=== PATIENT | female | born 1960 | race Caucasian/White ===

== ENCOUNTER → 2017-07-06 | Outpatient (CLI) | payer MEDICARE ==
--- NOTE | 2017-07-06 15:58 | WOMENS IMAGING REPORT ---
EXAM DESCRIPTION: BILAT SCREENING MAMMO W/CAD COMPLETED DATE/TIME: 07/06/2017 11:26 am REASON FOR STUDY: SCREENING MAMMO Z12.31 ENCNTR SCREEN MAMMOGRAM FOR MALIGNANT NEOPLASM OF VITOR COMPARISON: 09/02/2015 and 05/09/2014. TECHNIQUE: Standard craniocaudal and mediolateral oblique views of each breast recorded using DBVua l acquisition. LIMITATIONS: None. FINDINGS: No masses, calcifications or architectural distortion. No areas of suspicion. Read with the assistance of CAD. .[facility] - R2 Cenova Version 1.3 .[facility] - R2 Cenova Version 1.3 .[facility] - R2 Cenova Version 2.4 .[facility] [place] - R2 Cenova Version 2.4 .[facility] - R2 [employer] Version 9.2 IMPRESSION: NORMAL MAMMOGRAM. BIRADS 1. BREAST DENSITY: b. There are scattered areas of fibroglandular density. BIRAD: 1 NEGATIVE RECOMMENDATION: ROUTINE SCREENING COMMENT: The patient has been notified of the results by letter per SA requirements. Additional no tification policies are in place for contacting patient with suspicious or incomplete findings. Quality ID #[id number]: The [employer] recommends an annual screening mammogram for women aged 40 years or over. This facility utilizes a reminder system to ensure that all patients receive reminder letters, and/or direct phone calls for appointments. This includes reminders for routine scr eening mammograms, diagnostic mammograms, or other Breast Imaging Interventions when appropriate. Th is patient will be placed in the appropriate reminder system. The [employer] (ACR) has developed recommendations for screening MRI of the breast s in certain patient populations, to be used in conjunction with mammography. Breast MRI surveillanc e may be appropriate for women with more than 20% lifetime risk of developing breast cancer as deter mined by genetic testing, significant family history of the disease, or history of mantle radiation f or Hodgkins Disease. ACR Practice Guidelines 2008. TECHNICAL DOCUMENTATION: FINDING NUMBER: (1) ASSESSMENT: (1) JOB ID: [id number] EXPO- All Rights Reserved
== END ==
LOC: WI 09:58
PROVIDERS: ATTEND Family Medicine
DX: Z12.31 Encounter for screening mammogram for malignant neoplasm of breast (principal)
CPT/HCPCS: 77067; G0202

== ENCOUNTER 2018-07-22 16:20 | Emergency (ER) | payer MEDICARE ==
[2018-07-22] MEDS ORDERED: OLANZAPINE 5 MG TAB.RAPDIS PO ONE (17:17)
[2018-07-22 17:51] LABS: ABSOLUTE BASOPHILS # (AUTO) 0.1 10^3/uL (0.0-0.2); ABSOLUTE EOSINOPHILS # (AUTO) 0.1 10^3/uL (0.0-0.6); ABSOLUTE LYMPHOCYTES (AUTO) 2.3 10^3/uL (0.5-4.7); ABSOLUTE MONOCYTES (AUTO) 0.6 10^3/uL (0.1-1.4); ABSOLUTE NEUT (AUTO) 5.3 10^3/uL (1.7-8.2); BASOPHILS % (AUTO) 1.4 % (0-2); EOSINOPHILS % (AUTO) 0.7 % (0-6); HEMATOCRIT 35.1 % (36.0-47.0); HEMOGLOBIN 11.7 g/dL (12.0-15.5); LYMPHOCYTES % (AUTO) 27.4 % (13-45); MEAN CORPUSCULAR HEMOGLOBIN 27.9 pg (27.0-33.4); MEAN CORPUSCULAR HGB CONC 33.5 g/dL (32.0-36.0); MEAN CORPUSCULAR VOLUME 83 fl (80-97); MONOCYTES % (AUTO) 7.1 % (3-13); PLATELET COUNT 259 10^3/uL (150-450); RED BLOOD COUNT 4.21 10^6/uL (3.72-5.28); RED CELL DISTRIBUTION WIDTH 15.1 % (11.5-14.0); SEGMENTED NEUTROPHILS % (AUTO) 63.4 % (42-78); TOTAL CELLS COUNTED % (AUTO) 100 %; WHITE BLOOD COUNT 8.4 10^3/uL (4.0-10.5)
[2018-07-22 17:54] LABS: APPEARANCE,URINE SLIGHTLY-CLOUDY; BILIRUBIN,URINE NEGATIVE (NEGATIVE); COLOR,URINE YELLOW; GLUCOSE, URINE NEGATIVE (NEGATIVE); KETONES,URINE NEGATIVE (NEGATIVE); LEUKOCYTE ESTERASE,URINE TRACE (NEGATIVE); NITRITE,URINE NEGATIVE (NEGATIVE); PROTEIN,URINE 30 mg/dL (NEGATIVE); URINE SPECIFIC GRAVITY 1.042; UROBILINOGEN,URINE NEGATIVE mg/dL (<2.0)
[2018-07-22 18:13] LABS: ALANINE AMINOTRANSFERASE 67 U/L (9-52); ALKALINE PHOSPHATASE 88 U/L (38-126); ANION GAP 12 (5-19); ASPARTATE AMINO TRANSFERASE 92 U/L (14-36); BILIRUBIN,DIRECT 0.3 mg/dL (0.0-0.4); BILIRUBIN,TOTAL 0.3 mg/dL (0.2-1.3); BLOOD UREA NITROGEN 21 mg/dL (7-20); CALCIUM 9.4 mg/dL (8.4-10.2); CARBON DIOXIDE 29 mmol/L (22-30); CHLORIDE 104 mmol/L (98-107); GLUCOSE 95 mg/dL (75-110); POTASSIUM 3.2 mmol/L (3.6-5.0); SODIUM 144.5 mmol/L (137-145); TOTAL PROTEIN 7.1 g/dL (6.3-8.2)
[2018-07-22 18:14] LABS: ACETAMINOPHEN < 10 ug/mL (10-30); ALCOHOL < 10 mg/dL (NONE DETECTED); SALICYLATE < 1.0 mg/dL (2.0-20.0)
[2018-07-22 18:19] LABS: URINE AMPHETAMINES SCREEN NEGATIVE; URINE BARBITURATES SCREEN NEGATIVE; URINE BENZODIAZEPINES SCREEN UNCONFIRMED POSITIVE; URINE COCAINE SCREEN NEGATIVE; URINE MARIJUANA (THC) SCREEN NEGATIVE; URINE METHADONE SCREEN NEGATIVE; URINE PHENCYCLIDINE SCREEN NEGATIVE
[2018-07-22] MEDS ORDERED: POTASSIUM CHLORIDE 10 MEQ CAPSULE.ER PO ONE (19:19)
--- NOTE | 2018-07-22 19:19 | ER Document Report ---
ED General - General Chief Complaint: Anxiety Stated Complaint: PSYCH EVAL Time Seen by Provider: 07/22/18 16:49 TRAVEL OUTSIDE OF THE [place] IN LAST 30 DAYS: No - HPI Patient complains to provider of: Psychiatric evaluation Notes: Patient coming in for psychiatric evaluation. Patient upon my evaluation does look to be acutely manic. Patient is very hyperverbal with some cheondoism preoccupation. Patient upon my initial evaluation tells a random story with multiple names mixed in stating that they were very upsetting her. Eventually able to figure out the patient recently lost a loved one this level was cremated by the family. The patient is very upset that the lump on his cremated patient states that she has been trying to settle multiple memorials to celebrate loved ones life. Patient also states that psychiatric history of bipolar and does admit that this time she does feel manic. Patient denies any homicidal suicidal ideation. Patient does state that she is prescribed Valium once at nighttime once in the morning time also she is prescribed Valium 3 times daily and as needed. Patient states she is giving her medications by Dr. Nath psychiatrist stating "he is the best and I only want to be seen by the best". Patient otherwise continues on and continues to ramble with her hyperverbal presentation is not redirectable during the evaluation. - Related Data Allergies/Adverse Reactions: No Known Allergies Allergy (Verified 02/23/14 15:15) Past Medical History - Social History Smoking Status: Current Every Day Smoker Chew tobacco use (# tins/day): No Frequency of alcohol use: None Drug Abuse: None Family History: Reviewed & Not Pertinent Patient has suicidal ideation: No Patient has homicidal ideation: No - Past Medical History Cardiac Medical History: Endocrine Medical History: Renal/ Medical History: Denies: Hx Peritoneal Dialysis GI Medical History: Reports: Hx Gastroesophageal Reflux Disease Psychiatric Medical History: Reports: Hx Bipolar Disorder, Hx Depression, Hx Obsessive Compulsive Disorder, Hx Schizophrenia Past Surgical History: Reports: Hx Hysterectomy - Immunizations Hx Diphtheria, Pertussis, Tetanus Vaccination: Yes Review of Systems - Review of Systems Constitutional: No symptoms reported EENT: No symptoms reported Cardiovascular: No symptoms reported Respiratory: No symptoms reported Gastrointestinal: No symptoms reported Genitourinary: No symptoms reported Female Genitourinary: No symptoms reported Musculoskeletal: No symptoms reported Skin: No symptoms reported Hematologic/Lymphatic: No symptoms reported Neurological/Psychological: Other - Manic -: Yes All other systems reviewed and negative Physical Exam - Vital signs Vitals: Temp Pulse Resp BP Pulse Ox 98.4 F 102 H 19 155/92 H 100 07/22/18 16:30 07/22/18 16:30 07/22/18 16:30 07/22/18 16:30 07/22/18 16:30 Interpretation: Normal - General General appearance: Appears well, Alert - HEENT Head: Normocephalic, Atraumatic Eyes: Normal Pupils: PERRL - Respiratory Respiratory status: No respiratory distress Chest status: Nontender Breath sounds: Normal Chest palpation: Normal - Cardiovascular Rhythm: Regular Heart sounds: Normal auscultation Murmur: No - Abdominal Inspection: Normal Distension: No distension Bowel sounds: Normal Tenderness: Nontender Organomegaly: No organomegaly - Back Back: Normal, Nontender - Extremities General upper extremity: Normal inspection, Nontender, Normal color, Normal ROM , Normal temperature General lower extremity: Normal inspection, Nontender, Normal color, Normal ROM , Normal temperature, Normal weight bearing. No: Tremaine's sign - Neurological Neuro grossly intact: Yes Cognition: Normal Orientation: AAOx4 [place] Coma Scale Eye Opening: Spontaneous [place] Coma Scale Verbal: Oriented Beth Coma Scale Motor: Obeys Commands [place] Coma Scale Total: 15 Speech: Normal Motor strength normal: LUE, RUE, LLE, RLE Sensory: Normal - Psychological Associated symptoms: Manic, Oriental Orthodox preoccupation, Other - Hyperverbal - Skin Skin Temperature: Warm Skin Moisture: Dry Skin Color: Normal Course - Re-evaluation Re-evalutation: 07/22/18 19:18 Patient does admit to taking multiple tablets of her Valium today. At this time patient does look to be in a manic phase of her bipolar disorder. I do feel at this time the patient will be unable to take care of herself recommend the patient be placed on 24-hour hold a dose of Zyprexa was given to the patient laboratory studies done showed slight hypokalemia which will be replaced patient does not endorse any urinary tract symptoms urine will be sent for culture. Patient will wait for psychiatric evaluation in the morning. - Vital Signs Vital signs: Temp Pulse Resp BP Pulse Ox 98.4 F 102 H 19 155/92 H 100 07/22/18 16:30 07/22/18 16:30 07/22/18 16:30 07/22/18 16:30 07/22/18 16:30 - Laboratory Result Diagrams: 07/22/18 17:23 07/22/18 17:23 Laboratory results interpreted by me: 07/22/18 07/22/18 07/22/18 17:23 17:23 17:23 Hgb 11.7 L Hct 35.1 L RDW 15.1 H Potassium 3.2 L BUN 21 H AST 92 H ALT 67 H Urine Protein 30 H Ur Leukocyte Esterase TRACE H Salicylates < 1.0 L Acetaminophen < 10 L Discharge - Discharge Clinical Impression: Bipolar disorder, manic Condition: Good Disposition: PSYCH HOSP/UNIT Instructions: Anxiety ([facility]) Referrals: MARY SINGLETARY MD [Primary Care Provider] - Follow up as needed
[2018-07-22] MEDS ORDERED: HALOPERIDOL 5 MG TABLET PO ONE (20:11)
[2018-07-22] MEDS ORDERED: DIAZEPAM 5 MG TABLET PO ONE (23:02)
--- NOTE | 2018-07-23 00:18 | EKG REPORT ---
SEVERITY:- BORDERLINE ECG - SINUS TACHYCARDIA PROBABLE LEFT ATRIAL ABNORMALITY : Confirmed by: Patricio Fernandez 23-Jul-2018 00:17:53
[2018-07-23] MEDS ORDERED: ACETAMINOPHEN 325 MG TABLET PO ONE (01:07)
--- NOTE | 2018-07-23 10:08 | ER Document Report ---
Doctor's Note Notes: 07/23/18 10:07 Emergency department psychiatric rounding note 57-year-old female was brought in for psychiatric evaluation --patient was initially very manic. Patient received some medications and she states she is feeling very focused now this morning. There is soft music playing in her room and she stated it is helping her. She denies auditory hallucinations. However she is up pacing around the bed and will not sit on the bed. And still has a component of anthony present.
[2018-07-23] MEDS: BENZTROPINE MESYLATE 1 MG TABLET PO SCH (12:13)
[2018-07-23] MEDS: OLANZAPINE 5 MG TABLET PO SCH ×2 (12:13→18:35)
[2018-07-23] MEDS: DIVALPROEX SODIUM 250 MG TAB.SR.24H PO SCH ×2 (12:13→18:35)
--- NOTE | 2018-07-23 15:28 | PSYCHOLOGICAL NOTE ---
Psych Note - Psych Note Date seen by psych provider: 07/23/18 Time seen by psych provider: 03:00 Psych Note: Reason for consult: manic Patient continues to be in a manic state and unable to engage Clinician at this time. Medication recommendations per [facility]'s contracted psychiatrist Dr. Sherri HARRIS are as follows Discontinue Valium Discontinue Ambien Discontinue Seroquel Zyprexa 5mg twice daily Cogentin 1mg daily Depakote 250mg twice daily Diagnosis 296.40 (F31.9) Bipolar I Disorder, Unspecified Impression/Plan: Patient is recommend to continue IVC. Patient continues to be in a manic state. Medication recommendations have been submitted and patient will be re-evaluated in the morning. Dr. Mojica was consulted on the care and management of this patient; attending physician is in agreement with recommendations and disposition.
[2018-07-24] MEDS ORDERED: MELATONIN 5 MG TABLET PO PRN (01:03)
[2018-07-24] MEDS: DIPHENHYDRAMINE HCL 25 MG CAPSULE PO PRN ×3 (01:13→23:22)
[2018-07-24] MEDS ORDERED: DIAZEPAM 5 MG TABLET PO ONE (03:14)
--- NOTE | 2018-07-24 09:36 | ER Document Report ---
Doctor's Note Notes: 07/24/18 09:35 57-year-old female presented in a manic state, confused, disorganized speech, thinking. As the rounding physician this AM, I assessed the patient's labs, vitals, and records. No concerning findings this morning. Patient denies any acute complaints. Patient is cleared for disposition by psychiatry. 07/24/18 22:37 Medication recommendations per [facility]'s contracted psychiatrist Dr. Sherri HARRIS are as follows Discontinue Valium Discontinue Ambien Discontinue Seroquel Zyprexa 5mg twice daily Cogentin 1mg daily Depakote 250mg twice daily Diagnosis 296.40 (F31.9) Bipolar I Disorder, Unspecified Impression/Plan: Patient is recommended to continue IVC. Patient continues to be in a manic state although improving. Patient does engage in organized and linear conversations at times but then reverts back to a flight of thoughts. Patient will be re-evaluated in the morning. Dr. Mojica was consulted on the care and management of this patient; attending physician is in agreement with recommendations and disposition.
[2018-07-24] MEDS: DIVALPROEX SODIUM 250 MG TAB.SR.24H PO SCH ×2 (10:22→18:17)
[2018-07-24] MEDS: BENZTROPINE MESYLATE 1 MG TABLET PO SCH (10:22)
[2018-07-24] MEDS: OLANZAPINE 5 MG TABLET PO SCH ×2 (10:22→18:17)
--- NOTE | 2018-07-24 14:38 | PSYCHOLOGICAL NOTE ---
Psych Note - Psych Note Psych Note: Reason for consult: manic Consent for permissions: Joyce Cabrera, patient's mother, Clinician conducted check in on patient. Patient states that she feels much better after a night of rest. Patient was able to articulate that she was upset about the family not sharing her niece's ashes (there was a in the family) . However, Clinician spoke to patient's mother, it was actually the patient's sister that . Patient was able to articulate that she did not want to harm herself or anyone else. Patient states that she is currently living with her mother and plans to return home after discharge. Patient disclosed that she was being seen at [facility] but she could not remember when her last appointment was made. Patient did report that she was a patient at [facility] about 1.5 years ago. Patient's mother states that the patient's sister two weeks ago and the patient has been acting "weird" every since then. Mother states that patient constantly curses her out and insists on planning a memorial service even though they have already had one. Mother states that she is not afraid of the patient but just wants her to get some help. Mother states that they have also been working with [facility] for mobile crisis to assist with the patient. This Clinician called [employer] [employer] [employer] worker. They took the patient's name and said that they would call back after they did some research. Patient is alert and oriented to person, place, time and circumstance. Mood is euthymic. Patient demonstrates an organized and linear thought process on some topics but then reverts back to random thoughts. Attention and concentration are fair. Eye contact is well maintained. Conversational speech is normal tone and prosody. Insight, judgment and impulse control are fair. Medication recommendations per [facility] contracted psychiatrist Dr. Sherri HARRIS are as follows Discontinue Valium Discontinue Ambien Discontinue Seroquel Zyprexa 5mg twice daily Cogentin 1mg daily Depakote 250mg twice daily Diagnosis 296.40 (F31.9) Bipolar I Disorder, Unspecified Impression/Plan: Patient is recommended to continue IVC. Patient continues to be in a manic state although improving. Patient does engage in organized and linear conversations at times but then reverts back to a flight of thoughts. Patient will be re-evaluated in the morning. Dr. Mojica was consulted on the care and management of this patient; attending physician is in agreement with recommendations and disposition.
[2018-07-25] MEDS ORDERED: ACETAMINOPHEN 325 MG TABLET PO ONE (02:13)
[2018-07-25] MEDS: BENZTROPINE MESYLATE 1 MG TABLET PO SCH (09:13)
[2018-07-25] MEDS: DIVALPROEX SODIUM 250 MG TAB.SR.24H PO SCH (09:14)
[2018-07-25] MEDS: OLANZAPINE 5 MG TABLET PO SCH (09:15)
[2018-07-25] MEDS ORDERED: POTASSIUM CHLORIDE 10 MEQ CAPSULE.ER PO ONE (11:15)
--- NOTE | 2018-07-25 11:36 | PSYCHOLOGICAL NOTE ---
Psych Note - Psych Note Date seen by psych provider: 07/25/18 Psych Note: Reason for consult: manic Consent for permissions: Joyce Cabrera, patient's mother, Patient was accepted to [facility] Chart review conducted patient continues to disclose bizarre thought processes [facility] staff disclosed to clinician concern he patient was asking to call 911 because she thinks her is missing and then offered for services and a therapist to other patient. Medication recommendations per [facility]'s contracted psychiatrist Dr. Sherri HARRIS are as follows Discontinue Valium Discontinue Ambien Discontinue Seroquel Zyprexa 5mg twice daily Cogentin 1mg daily Depakote 250mg twice daily Diagnosis 296.80 (F31.9) Unspecified Bipolar Disorder per history Impression/Plan: Patient is recommended to continue IVC. Clinician was told by attending [facility] staff the patient is concerned that her is missing and wanted to call 911. 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 Patient has been accepted to [facility]; transportation has been requested. Dr. Mojica was consulted on the care and management of this patient; attending physician is in agreement with recommendations and disposition.
--- NOTE | 2018-07-25 11:42 | ER Document Report ---
Doctor's Note Notes: 07/25/18 11:52 Rounds: Chart reviewed and patient interviewed. Patient being evaluated for bipolar disorder, manic state. Patient says she is doing fine while she is sitting and eating her lunch of fried chicken, etc. Says it is quite good. She has been up walking around the department with no difficulty. Says she is doing well. Vital signs are all normal except for a slight tachycardia which has been as high as 121, but most recently was 108. EKG earlier showed sinus tachycardia at 100. No other findings. All other vital signs normal. Lab studies showed a potassium of 3.2 so the patient was given 40 mEq of potassium p.o. Drug screen was positive for benzos. She acknowledged taking a number of her Valium. Patient appears to be medically stable for transfer or discharge. Demarcus Nova MD
[2018-07-25 11:51] VITALS: BP 142/99
== END 2018-07-25 13:45 ==
LOC: ER 16:20
DX: F31.9 Bipolar disorder, unspecified (principal); E87.6 Hypokalemia; F17.200 Nicotine dependence, unspecified, uncomplicated; Z79.899 Other long term (current) drug therapy; R00.0 Tachycardia, unspecified
CPT/HCPCS: 93005; 99285; 36415; 87086; 80307 ×4; 85025; 80053; 81001; 93010; A9270 ×18; J3490

== ENCOUNTER 2018-08-12 18:57 | Emergency (ER) | payer MEDICARE ==
[2018-08-12 20:17] LABS: ALANINE AMINOTRANSFERASE 26 U/L (9-52); ALBUMIN 4.1 g/dL (3.5-5.0); ALKALINE PHOSPHATASE 99 U/L (38-126); ANION GAP 13 (5-19); ASPARTATE AMINO TRANSFERASE 23 U/L (14-36); BILIRUBIN,DIRECT 0.1 mg/dL (0.0-0.4); BILIRUBIN,TOTAL 0.1 mg/dL (0.2-1.3); BLOOD UREA NITROGEN 20 mg/dL (7-20); CALCIUM 9.7 mg/dL (8.4-10.2); CARBON DIOXIDE 25 mmol/L (22-30); CHLORIDE 107 mmol/L (98-107); GLUCOSE 124 mg/dL (75-110); POTASSIUM 3.7 mmol/L (3.6-5.0); TOTAL PROTEIN 6.9 g/dL (6.3-8.2)
--- NOTE | 2018-08-12 20:26 | ER Document Report ---
ED General - General Chief Complaint: Leg Swelling Stated Complaint: ANKLE SWELLING Time Seen by Provider: 08/12/18 19:22 Mode of Arrival: Ambulatory Information source: Patient Notes: Chief complaint: Swelling of the lower extremity History of complain:( obtained from----patient) 57 years old female with history of psychiatric disorder was discharged from the facility yesterday. During this time they noted swelling of the lower extremity and started on Lasix 10 mg a day. Patient also was having lower extremity pain particularly over the ankles and feet. No difficulty in breathing, no chest pain, no palpitation or diaphoresis. Onset: As above Duration: Last few days Severity: Mild to moderate Quality: Gradual Context: As above Exacerbating factor and relieving factors: REVIEW OF SYSTEMS: CONSTITUTIONAL : Denies fever, chills, or sweats. Denies recent illness. EENT: Denies eye, ear, throat, or mouth pain or symptoms. Denies nasal or sinus congestion or discharge. Denies throat, tongue, or mouth swelling or difficulty swallowing. CARDIOVASCULAR: Denies chest pain. Denies palpitations or racing or irregular heart beat. Denies ankle edema. RESPIRATORY: Denies cough, cold, or chest congestion. Denies shortness of breath, difficulty breathing, or wheezing. GASTROINTESTINAL: Denies distention. Denies nausea, vomiting, or diarrhea. Denies blood in vomitus, stools, or per rectum. Denies black, tarry stools. Denies constipation. GENITOURINARY: Denies difficulty urinating, painful urination, burning, frequency, blood in urine, or discharge. FEMALE GENITOURINARY: Denies vaginal bleeding, heavy or abnormal periods, irregular periods. Denies vaginal discharge or odor. MUSCULOSKELETAL: Denies back or neck pain or stiffness. Denies joint pain or swelling. SKIN: Denies rash, lesions or sores. HEMATOLOGIC : Denies easy bruising or bleeding. LYMPHATIC: Denies swollen, enlarged glands. NEUROLOGICAL: Denies confusion or altered mental status. Denies passing out or loss of consciousness. Denies dizziness or lightheadedness. Denies headache. Denies weakness or paralysis or loss of use of either side. Denies problems with gait or speech. Denies sensory loss, numbness, or tingling. Denies seizures. PSYCHIATRIC: Denies anxiety or stress. Denies depression, suicidal ideation, or homicidal ideation. ALL OTHER SYSTEMS REVIEWED AND NEGATIVE. PHYSICAL EXAMINATION: GENERAL: Well-appearing, well-nourished and in no acute distress. HEAD: Atraumatic, normocephalic. EYES: Pupils equal round and reactive to light, extraocular movements intact, conjunctiva are normal. ENT: Nares patent, oropharynx clear without exudates. Moist mucous membranes. NECK: Normal range of motion, supple without lymphadenopathy LUNGS: Breath sounds clear to auscultation bilaterally and equal. No wheezes rales or rhonchi. HEART: Regular rate and rhythm without murmurs ABDOMEN: Soft, nontender, nondistended abdomen. No guarding, no rebound. No masses appreciated. Examination of genitals-deferred Musculoskeletal: Normal range of motion, no pitting or edema. No cyanosis. Lower leg swelling noted but it is not a pitting edema is a chronic venous stasis. NEUROLOGICAL: Cranial nerves grossly intact. Normal speech, normal gait. Normal sensory, motor exams PSYCH: Normal mood, normal affect. SKIN: Warm, Dry, normal turgor, no rashes or lesions noted. Dictation was performed using [employer] voice recognition software TRAVEL OUTSIDE OF THE [place] IN LAST 30 DAYS: No - HPI Notes: Dictated - Related Data Allergies/Adverse Reactions: No Known Allergies Allergy (Verified 08/12/18 19:03) Past Medical History - Social History Smoking Status: Never Smoker Frequency of alcohol use: Rare Drug Abuse: None Lives with: Family Family History: Reviewed & Not Pertinent Patient has suicidal ideation: No Patient has homicidal ideation: No - Past Medical History Cardiac Medical History: Endocrine Medical History: Renal/ Medical History: Denies: Hx Peritoneal Dialysis GI Medical History: Reports: Hx Gastroesophageal Reflux Disease Psychiatric Medical History: Reports: Hx Bipolar Disorder, Hx Depression, Hx Obsessive Compulsive Disorder, Hx Schizophrenia Past Surgical History: Reports: Hx Hysterectomy - Immunizations Hx Diphtheria, Pertussis, Tetanus Vaccination: Yes Review of Systems - Review of Systems Notes: Dictated Physical Exam - Vital signs Vitals: Temp Pulse Resp BP Pulse Ox 98.6 F 110 H 18 124/72 96 08/12/18 19:09 08/12/18 19:09 08/12/18 19:09 08/12/18 19:09 08/12/18 19:09 - Notes Notes: Dictated Course - Vital Signs Vital signs: Temp Pulse Resp BP Pulse Ox 98.6 F 110 H 18 124/72 96 08/12/18 19:09 08/12/18 19:09 08/12/18 19:09 08/12/18 19:09 08/12/18 19:09 - Laboratory Result Diagrams: 08/12/18 19:35 Laboratory results interpreted by me: 08/12/18 19:35 Glucose 124 H Total Bilirubin 0.1 L Discharge - Discharge Clinical Impression: Non-pitting edema Peripheral neuropathy Qualifiers: Peripheral neuropathy type: polyneuropathy, unspecified Qualified Code(s): G62.9 - Polyneuropathy, unspecified Condition: Fair Disposition: HOME, SELF-CARE Instructions: Neuropathy ([facility]) Prescriptions: Gabapentin [Neurontin 100 mg Capsule] 100 mg PO Q12 #60 capsule Referrals: MARY SINGLETARY MD [Primary Care Provider] - Follow up as needed
[2018-08-12 20:51] VITALS: BP 133/84
== END 2018-08-12 20:59 | disposition home or self-care (01) ==
LOC: ER 18:57
DX: G62.9 Polyneuropathy, unspecified (principal); R60.0 Localized edema; M79.606 Pain in leg, unspecified; Z79.899 Other long term (current) drug therapy
CPT/HCPCS: 36415; 80053; 83880; 99283

== ENCOUNTER 2019-01-12 06:29 | Inpatient (IN) | payer MEDICARE ==
--- NOTE | 2019-01-12 06:39 | ER Document Report ---
ED General - General Stated Complaint: FALL Time Seen by Provider: 01/12/19 06:37 Notes: 58-year-old female on multiple psychiatric medication presents with fall. Is un clear what she was found down of the fall was witnessed, EMS is not here to give a report. Apparently she told her family she might of taken too many psych meds. She has altered mental status with me and is not able to give much of a history. TRAVEL OUTSIDE OF THE [place] IN LAST 30 DAYS: No - Related Data Allergies/Adverse Reactions: No Known Allergies Allergy (Verified 08/12/18 19:03) Past Medical History - General Information source: Patient - Social History Smoking Status: Never Smoker Family History: Reviewed & Not Pertinent - Past Medical History Cardiac Medical History: Endocrine Medical History: Renal/ Medical History: Denies: Hx Peritoneal Dialysis GI Medical History: Reports: Hx Gastroesophageal Reflux Disease Psychiatric Medical History: Reports: Hx Bipolar Disorder, Hx Depression, Hx Obsessive Compulsive Disorder, Hx Schizophrenia Past Surgical History: Reports: Hx Hysterectomy - Immunizations Hx Diphtheria, Pertussis, Tetanus Vaccination: Yes Review of Systems - Review of Systems Notes: REVIEW OF SYSTEMS Third mental status PHYSICAL EXAMINATION General: No acute distress, well-nourished Head: Bruising and laceration to the midline forehead, normocephalic ENT: Mouth normal, oropharynx very dry with dried sputum and saliva around the mouth Eyes: Conjunctiva, 6 mm minimally reactive pupils bilaterally Neck: No JVD, supple, no guarding CVS: Normal rate, regular rhythm, no murmurs Resp: No resp distress, equal and normal breath sounds bilaterally GI: Nondistended, soft, no tenderness to palpation, no rebound or guarding Ext: No deformities, no edema, normal range of motion in upper and lower ext Back: No CVA or midline TTP Skin: No rash, warm Lymphatic: No lymphadeopathy noted Neuro: Awake, staring, does interact with eyes. Answer simple questions. Clonus and intermittent myoclonus. Symmetric. -: Yes ROS unobtainable due to patient's medical condition Physical Exam - Vital signs Vitals: Resp Pulse Ox 13 96 01/12/19 06:34 01/12/19 06:34 Course - Re-evaluation Re-evalutation: 01/12/19 08:05 Patient presents with fall versus versus syncope, looks like she is been down for quite a while has dried sputum, looks very dry possibly septic and definite ly altered. We will do septic work-up but also trauma work-up with head and neck CT scan, suspect also involvement of psychiatric medications versus psychiatric decompensation. Will give fluids initially and check labs. Reassessed at 8 AMno change in mental status. Head and C-spine CT read negat zee, cleared C-spine. First lab back as an elevated lactic. Have ordered fluids and antibiotics concern for sepsis. 01/12/19 08:51 X-rays negative urine is negative. Remains with a white count unexplained. Also on lithium. Added lithium level added vancomycin to cover drug-resistant strep meningitis, is already received Rocephin. Cultures are in the lab. Discussed with Dr. cuco gustafson for admission. Initially was going to perform an LP but he states that it is quite needs to get done in radiology, so this is been ordered as well. I added on acyclovir to cover encephalitis. - Vital Signs Vital signs: Temp Pulse Resp BP Pulse Ox 99.9 F 14 169/93 H 94 01/12/19 07:26 01/12/19 07:01 01/12/19 07:01 01/12/19 07:26 - Laboratory Result Diagrams: 01/12/19 06:50 01/12/19 06:50 Laboratory results interpreted by me: 01/12/19 01/12/19 01/12/19 06:37 06:50 06:50 WBC 26.4 H Seg Neuts % (Manual) 87 H Lymphocytes % (Manual) 8 L Abs Neuts (Manual) 23.0 H BUN 24 H Est GFR (Non-Af Amer) 58 L Glucose 155 H POC Glucose 154 H Lactic Acid Calcium 10.6 H AST 55 H Creatine Kinase Urine Protein 01/12/19 01/12/19 01/12/19 06:50 06:50 06:50 WBC Seg Neuts % (Manual) Lymphocytes % (Manual) Abs Neuts (Manual) BUN Est GFR (Non-Af Amer) Glucose POC Glucose Lactic Acid 3.8 H Calcium AST Creatine Kinase 554 H Urine Protein 30 H - Diagnostic Test Radiology reviewed: Image reviewed, Reports reviewed Critical Care Note - Critical Care Note Total time excluding time spent on procedures (mins): 34 Comments: The above patient is critically ill. Not including procedures, but including direct re-evaluations, speaking with patient and/or consultants, interpreting results, and documenting, I spent the total amount of minute listed listed above on critical care time Discharge - Discharge Clinical Impression: Elevated lactic acid level Altered mental status Qualifiers: Altered mental status type: unspecified Qualified Code(s): R41.82 - Altered mental status, unspecified Condition: Critical Disposition: ADMITTED INPATIENT Admitting Provider: Maye (Hospitalist) Unit Admitted: [facility]
[2019-01-12 07:24] LABS: INTERNATIONAL RATION (INR) 0.93; PROTHROMBIN TIME 12.9 SEC (11.4-15.4)
[2019-01-12 07:26] LABS: HEMATOCRIT 36.2 % (36.0-47.0); HEMOGLOBIN 12.1 g/dL (12.0-15.5); MEAN CORPUSCULAR HEMOGLOBIN 27.2 pg (27.0-33.4); MEAN CORPUSCULAR HGB CONC 33.4 g/dL (32.0-36.0); MEAN CORPUSCULAR VOLUME 81 fl (80-97); PLATELET COUNT 386 10^3/uL (150-450); RED BLOOD COUNT 4.45 10^6/uL (3.72-5.28); RED CELL DISTRIBUTION WIDTH 13.9 % (11.5-14.0); WHITE BLOOD COUNT 26.4 10^3/uL (4.0-10.5)
--- NOTE | 2019-01-12 07:34 | RADIOLOGY REPORT (SQ) ---
CLINICAL HISTORY: trauma COMPARISON: None. TECHNIQUE: CT HEAD WITHOUT IV CONTRAST on 01/12/2019 6:37 AM CDT This exam was performed according to our departmental dose-optimization program, which includes automated exposure control, adjustment of the mA and/or kV according to patient size and/or use of iterative reconstruction technique. FINDINGS: There is a small midline frontal scalp contusion. Arreola-white differentiation is preserved. There is no hydrocephalus. There is no significant volume loss for age. There are mild patchy hypodensities within the periventricular and subcortical white matter, consistent with microangiopathic ischemic changes. The calvarium is intact. Orbits and globes are unremarkable. There is a right maxillary sinus mucous retention cyst. Mastoid air cells are clear. IMPRESSION: No acute intracranial findings.
--- NOTE | 2019-01-12 07:35 | RADIOLOGY REPORT (SQ) ---
EXAM DESCRIPTION: CT CERVICAL SPINE WITHOUT IV CONTRAST COMPLETED DATE/TME: 01/12/2019 06:37 CLINICAL HISTORY: 58 years, Female, trauma COMPARISON: None. TECHNIQUE: Axial CT images of the cervical spine were obtained without contrast. Sagittal and coronal reformats were performed. DLP 388 Images stored on PACS. All CT scanners at this facility use dose modulation, iterative reconstruction, and/or weight based dosing when appropriate to reduce radiation dose to as low as reasonably achievable (ALARA). [facility]: Dose Right [facility]: CareDose [facility]: Dose Right [facility]: Teradose 4D [facility]: S4 [employer] LIMITATIONS: None. FINDINGS: The alignment of the cervical spine is satisfactory. There is no acute fracture or subluxation. The vertebral heights are maintained. The craniocervical junction is intact. The odontoid process is intact. The prevertebral soft tissues are normal. There is mild multilevel spondylosis, most notably at C4-C5 with mild disc space narrowing with marginal osteophytes. There is severe right-sided neural foraminal narrowing at C4-C5 secondary to uncovertebral hypertrophy. The visualized lung apices are clear. IMPRESSION: No acute fracture or subluxation of the cervical spine. TECHNICAL DOCUMENTATION: Quality ID # 436: Final reports with documentation of one or more dose reduction techniques (e.g., Automated exposure control, adjustment of the mA and/or kV according to patient size, use of iterative reconstruction technique) copyright 2011 [employer]- All Rights Reserved
[2019-01-12] MEDS ORDERED: CEFTRIAXONE 1 GM/D5W RTU 1 GM/50 ML RTUPB IV ONE ×2 (07:39→07:50)
[2019-01-12 07:40] LABS: ALANINE AMINOTRANSFERASE 49 U/L (9-52); ALBUMIN 4.6 g/dL (3.5-5.0); ALKALINE PHOSPHATASE 92 U/L (38-126); ANION GAP 13 (5-19); ASPARTATE AMINO TRANSFERASE 55 U/L (14-36); BILIRUBIN,DIRECT 0.4 mg/dL (0.0-0.4); BILIRUBIN,TOTAL 0.4 mg/dL (0.2-1.3); BLOOD UREA NITROGEN 24 mg/dL (7-20); CALCIUM 10.6 mg/dL (8.4-10.2); CARBON DIOXIDE 24 mmol/L (22-30); CHLORIDE 107 mmol/L (98-107); GLUCOSE 155 mg/dL (75-110); POTASSIUM 3.6 mmol/L (3.6-5.0); SODIUM 143.6 mmol/L (137-145); TOTAL PROTEIN 7.8 g/dL (6.3-8.2)
[2019-01-12] MEDS ORDERED: NORMAL SALINE 1000 ML 1,000 ML IV ONE (07:40)
[2019-01-12] MEDS ORDERED: CEFTRIAXONE INJ 1000 MG VIAL ONE (07:51)
[2019-01-12 07:53] LABS: VENOUS BLOOD BASE EXCESS 0.8 mmol/L; VENOUS BLOOD HCO3 25.9 mmol/L (20-32); VENOUS BLOOD PCO2 42.8 mmHg (35-63); VENOUS BLOOD PH 7.4 (7.30-7.42)
[2019-01-12 08:01] LABS: ABSOLUTE LYMPHOCYTES# (MANUAL) 2.1 10^3/uL (0.5-4.7); ABSOLUTE MONOCYTES # (MANUAL) 1.3 10^3/uL (0.1-1.4); BASOPHILS % (MANUAL) 0 % (0-2); EOSINOPHILS % (MANUAL) 0 % (0-6); LYMPHOCYTES % (MANUAL) 8 % (13-45); MONOCYTES % (MANUAL) 5 % (3-13); PLATELET CLUMPS PRESENT; PLATELET COMMENT ADEQUATE; RBC MORPHOLOGY COMMENT NORMO-CYTIC/CHROMIC; SEGMENTED NEUTROPHILS % (MAN) 87 % (42-78); TOTAL CELLS COUNTED 100; TOXIC GRANULATION SLIGHT; TOXIC VACUOLATION PRESENT
[2019-01-12 08:07] LABS: APPEARANCE,URINE SLIGHTLY-CLOUDY; BILIRUBIN,URINE NEGATIVE (NEGATIVE); COLOR,URINE YELLOW; GLUCOSE, URINE NEGATIVE (NEGATIVE); KETONES,URINE NEGATIVE (NEGATIVE); LEUKOCYTE ESTERASE,URINE NEGATIVE (NEGATIVE); NITRITE,URINE NEGATIVE (NEGATIVE); PROTEIN,URINE 30 mg/dL (NEGATIVE); URINE SPECIFIC GRAVITY 1.018; UROBILINOGEN,URINE NEGATIVE mg/dL (<2.0)
[2019-01-12] MEDS ORDERED: VANCOMYCIN HCL INJ 1000 MG VIAL IV ONE (08:30)
[2019-01-12] MEDS ORDERED: LIDOCAINE 1%/EPINEPHRINE INJ 20 ML VIAL INJ ONE (08:30)
[2019-01-12] MEDS ORDERED: LIDOCAINE 1% INJ-PF (10 MG/ML) 30 ML SDV INJ ONE (08:30)
--- NOTE | 2019-01-12 08:50 | RADIOLOGY REPORT (SQ) ---
EXAM DESCRIPTION: CHEST SINGLE VIEW COMPLETED DATE/TIME: 01/12/2019 8:40 am REASON FOR STUDY: elev wbc COMPARISON: TWO-VIEW CHEST 01/03/2016 EXAM PARAMETERS: NUMBER OF VIEWS: One view. TECHNIQUE: Single frontal radiographic view of the chest acquired. RADIATION DOSE: NA LIMITATIONS: None. FINDINGS: LUNGS AND PLEURA: No opacities, masses or pneumothorax. No pleural effusion. MEDIASTINUM AND HILAR STRUCTURES: No masses. Contour normal. HEART AND VASCULAR STRUCTURES: Heart normal in size. Normal vasculature. BONES: No acute findings. HARDWARE: None in the chest. OTHER: No other significant finding. IMPRESSION: NO ACUTE RADIOGRAPHIC FINDING IN THE CHEST. TECHNICAL DOCUMENTATION: JOB ID: [id number] [employer]- All Rights Reserved Reading location - IP/workstation name: [email or web address]
[2019-01-12] MEDS ORDERED: ACYCLOVIR SODIUM INJ/PF 500 MG/10 ML SDV IV ONE (08:51)
[2019-01-12] MEDS ORDERED: MAGNESIUM HYDROXIDE SUSP 30 ML UDCUP PO PRN (09:02)
[2019-01-12] MEDS ORDERED: PROMETHAZINE HCL INJ 25 MG/1 ML VIAL IV PRN (09:02)
[2019-01-12] MEDS ORDERED: LORAZEPAM INJ 2 MG/1 ML VIAL IV ONE ×2 (09:12→09:49)
[2019-01-12] MEDS ORDERED: VANCOMYCIN HCL 0 MG in DEXTROSE 5%-WATER 250 ML IV NR (09:15)
--- NOTE | 2019-01-12 09:25 | PDOC H&P ---
History of Present Illness Admission Date/PCP: 01/12/19 08:48 MARY SINGLETARY MD History of Present Illness: KYLER INFANTE is a 58 year old female patient with psychiatric disorder and taking multiple antipsychotic medications including Risperdal, perphenazine and lithium brought by EMS for altered mental status and fall. Patient is oriented to self only. Due to her cognitive impairment, patient is not able to give any meaningful history. Brief history is obtained from ER attending note. Per ER attending note, patient has been on multiple psychiatric medication presented with fall. Is unclear when she was found down of the fall was witnessed, EMS is not here to give a report. Apparently she told her family she might have taken too many psych medications. When I see the patient patient is awake alert. She is disheveled and unkempt. She has several lacerations and cuts on her forehead and she has also erythema on her neck. Her CT scan is negative for acute for acute intracranial process. Her blood work shows WBC of 26,000 lactic acid of 3.8. Her lithium level is pending. Patient has low-grade fever, altered mental status and leukocytosis so I think it is appropriate to do lumbar puncture to rule out meningitis. In the meantime patient has been st arted on ceftriaxone and vancomycin. Past Medical History Cardiac Medical History: Endocrine Medical History: GI Medical History: Reports: Gastroesophageal Reflux Disease Psychiatric Medical History: Reports: Bipolar Disorder, Depression Past Surgical History Past Surgical History: Reports: Hysterectomy Social History Smoking Status: Never Smoker - Advance Directive Resuscitation Status: Full Code Family History Family History: Reviewed & Not Pertinent Parental Family History Reviewed: Yes Children Family History Reviewed: Yes Sibling(s) Family History Reviewed.: Yes Medication/Allergy Home Medications: Baclofen [Baclofen 20 mg Tablet] 20 mg PO DAILY 01/12/19 Benztropine Mesylate [Cogentin 1 mg Tablet] 1 mg PO BID 01/12/19 Biotin 5,000 mcg PO DAILY 01/12/19 Calcium Carbonate/Vitamin D3 [Calcium 600-Vit D3 500 Softgel] 2 cap PO DAILY 01/12/19 Cholecalciferol (Vitamin D3) [Vitamin D3 2000 unit Tablet] 2,000 unit PO DAILY 01/12/19 Ferrous Sulfate [Feosol 325 mg Tablet] 325 mg PO DAILY 01/12/19 Hydroxyzine Pamoate [Vistaril 50 mg Capsule] 50 mg PO Q8 01/12/19 [place] Carbonate [[place] Carbonate ER] 300 mg PO QAM 01/12/19 [place] Carbonate [[place] Carbonate ER] 600 mg PO QPM 01/12/19 Loratadine [Claritin 10 mg Tablet] 10 mg PO DAILYP PRN 01/12/19 Melatonin 10 mg PO QHS 01/12/19 Meloxicam [Mobic] 15 mg PO DAILY 01/12/19 Mv-Min/Iron/Folic/Calcium/Vitk [Women's Multivitamin Tablet] 1 tab PO DAILY 01/12/19 Omeprazole 40 mg PO [id number] 01/12/19 Perphenazine 2 mg PO QHS 01/12/19 Risperidone [Risperdal] 1 mg PO BID 01/12/19 Allergies/Adverse Reactions: No Known Allergies Allergy (Verified 08/12/18 19:03) Review of Systems ROS unobtainable: Due to mental status Physical Exam Vital Signs: Temp Pulse Resp BP Pulse Ox 99.9 F 14 169/93 H 94 01/12/19 07:26 01/12/19 07:01 01/12/19 07:01 01/12/19 07:26 General appearance: PRESENT: no acute distress, well-developed Head exam: PRESENT: other - Laceration and bruises on her forehead Eye exam: PRESENT: conjunctival injection Mouth exam: PRESENT: dry mucosa Neck exam: ABSENT: carotid bruit, JVD, lymphadenopathy, thyromegaly Respiratory exam: PRESENT: clear to auscultation manolo. ABSENT: rales, rhonchi, wheezes Cardiovascular exam: PRESENT: RRR. ABSENT: diastolic murmur, rubs, systolic murmur GI/Abdominal exam: PRESENT: normal bowel sounds, soft. ABSENT: distended, guarding, mass, organolmegaly, rebound, tenderness Neurological exam: PRESENT: alert, altered, awake Results Laboratory Results: 01/12/19 06:50 01/12/19 06:50 01/12/19 01/12/19 01/12/19 06:50 06:50 06:50 WBC 26.4 H RBC 4.45 Hgb 12.1 Hct 36.2 MCV 81 MCH 27.2 MCHC 33.4 RDW 13.9 Plt Count 386 Seg Neutrophils % Not Reportable Lymphocytes % Not Reportable Monocytes % Not Reportable Eosinophils % Not Reportable Basophils % Not Reportable Absolute Neutrophils Not Reportable Absolute Lymphocytes Not Reportable Absolute Monocytes Not Reportable Absolute Eosinophils Not Reportable Absolute Basophils Not Reportable VBG pH VBG pCO2 VBG HCO3 VBG Base Excess Sodium 143.6 Potassium 3.6 Chloride 107 Carbon Dioxide 24 Anion Gap 13 BUN 24 H Creatinine 0.99 Est GFR ( Amer) > 60 Est GFR (Non-Af Amer) 58 L Glucose 155 H Lactic Acid 3.8 H Calcium 10.6 H Total Bilirubin 0.4 AST 55 H ALT 49 Alkaline Phosphatase 92 Total Protein 7.8 Albumin 4.6 Urine Color Urine Appearance Urine pH Ur Specific [place] Urine Protein Urine Glucose (UA) Urine Ketones Urine Blood Urine Nitrite Ur Leukocyte Esterase Urine WBC (Auto) Urine RBC (Auto) 01/12/19 01/12/19 06:50 07:32 WBC RBC Hgb Hct MCV MCH MCHC RDW Plt Count Seg Neutrophils % Lymphocytes % Monocytes % Eosinophils % Basophils % Absolute Neutrophils Absolute Lymphocytes Absolute Monocytes Absolute Eosinophils Absolute Basophils VBG pH 7.40 VBG pCO2 42.8 VBG HCO3 25.9 VBG Base Excess 0.8 Sodium Potassium Chloride Carbon Dioxide Anion Gap BUN Creatinine Est GFR ( Amer) Est GFR (Non-Af Amer) Glucose Lactic Acid Calcium Total Bilirubin AST ALT Alkaline Phosphatase Total Protein Albumin Urine Color YELLOW Urine Appearance SLIGHTLY-CLOUDY Urine pH 6.0 Ur Specific [place] 1.018 Urine Protein 30 H Urine Glucose (UA) NEGATIVE Urine Ketones NEGATIVE Urine Blood NEGATIVE Urine Nitrite NEGATIVE Ur Leukocyte Esterase NEGATIVE Urine WBC (Auto) 2 Urine RBC (Auto) 1 01/12/19 06:50 Creatine Kinase 554 H Impressions: Cervical Spine CT 01/12/19 06:37 IMPRESSION: No acute fracture or subluxation of the cervical spine. TECHNICAL DOCUMENTATION: Quality ID # 436: Final reports with documentation of one or more dose reduction techniques (e.g., Automated exposure control, adjustment of the mA and/or kV according to patient size, use of iterative reconstruction technique) copyright 2011 [employer]- All Rights Reserved Head CT 01/12/19 06:37 IMPRESSION: No acute intracranial findings. Chest X-Ray 01/12/19 08:29 IMPRESSION: NO ACUTE RADIOGRAPHIC FINDING IN THE CHEST. Assessment and Plan - Diagnosis (1) Acute encephalopathy Is this a current diagnosis for this admission?: Yes Plan: Etiology is unclear. Patient has been on multiple antipsychotic medications. She has leukocytosis and fever. LP is pending. Patient has been started empirically on ceftriaxone and vancomycin. (2) Leukocytosis Is this a current diagnosis for this admission?: Yes Plan: Patient has marked leukocytosis of 26,000. We will repeat her CBC in a.m. (3) Depression and bipolar disorder Is this a current diagnosis for this admission?: Yes Plan: I will hold her lithium until her lithium level comes back. We will consult psych to evaluate the patient. - Inpatient Certification Medical Necessity: Need Close Monitoring Due to Risk of Patient Decompensation, Need For IV Fluids
[2019-01-12] MEDS ORDERED: RINGERS SOLUTION,LACTATED 1,000 ML IV ONE (09:46)
[2019-01-12] MEDS ORDERED: LORAZEPAM INJ 2 MG/1 ML VIAL ONE (09:50)
[2019-01-12] MEDS ORDERED: CEFTRIAXONE 2 GM/D5W RTU 2 GM/50 ML RTUPB IV SCH (10:00)
[2019-01-12] MEDS: ENOXAPARIN SODIUM INJ 40 MG/0.4 ML DISP.SYRIN SUBCUT SCH (11:51)
[2019-01-12] MEDS: FAMOTIDINE 20 MG TABLET PO SCH ×2 (11:51→21:40)
[2019-01-12] MEDS: DOCUSATE SODIUM 100 MG/10 ML UDC PO SCH ×2 (11:51→17:47)
--- NOTE | 2019-01-12 12:39 | RADIOLOGY REPORT (SQ) ---
EXAM DESCRIPTION: LUMBAR PUNCTURE; FLUORO/NEEDLE PLACEMENT/SPINE COMPLETED DATE/TIME: 01/12/2019 11:39 am REASON FOR STUDY: r/o meningitis; R/O MENINGTITIS COMPARISON: CT brain 01/12/2019 FLUOROSCOPY TIME: 30 seconds 1 digital fluoroscopic images saved to PACS. TECHNIQUE: Fluoroscopic guided lumbar puncture. LIMITATIONS: None. PROCEDURE: After written consent and assessment were obtained, the patient was brought into the fluo roscopy room and placed prone on the table. The patient's lower back was prepped in a sterile fashio n and an entry site was selected under live fluoroscopic guidance. The entry site was anesthetized wi th 1% lidocaine. A 22 gauge needle was advanced through the skin and into the thecal sac at theleft p aracentral L2-3 level. After approximately 2 ml was drained, the needle was removed and a sterile ban dage was placed of the site. Specimens were sent to the lab for testing. A fluoroscopic spot image was saved to PACS confirming level access. FINDINGS: Clear CSF 2 mL of clear CSF was sent to the lab for testing. Patient was agitated and wou ld not tolerate further collection of CSF IMPRESSION: Lumbar puncture under fluoroscopy. No immediate complication. COMMENT: Patient medication list reviewed: Yes- Quality ID# 130:Eligible professional attests to doc umenting in the medical record they obtained, updated, or reviewed the patient's current medications. . Quality ID 145: Final reports for procedures using fluoroscopy that document radiation exposure jose alejandro andreia, or exposure time and number of fluorographic images (if radiation exposure indices are not avail able) TECHNICAL DOCUMENTATION: JOB ID: [id number] [employer]- All Rights Reserved Reading location - IP/workstation name: [email or web address]
[2019-01-12 12:45] LABS: APPEARANCE ALL TUBES CLEAR; COLOR ALL TUBES COLORLESS; CSF TOTAL VOLUME 1.6 CC; CSF TUBE NUMBER 1; VOLUME TUBE 1 0.8 CC; VOLUME TUBE 2 0.8 CC
[2019-01-12 12:47] LABS: RED BLOOD CELL,CSF 231 /uL (0-10)
[2019-01-12 12:48] LABS: WHITE BLOOD CELL,CSF 4 /uL (0-5)
[2019-01-12 13:24] LABS: GLUCOSE,CSF 96 mg/dL (40-70); PROTEIN,CSF 32 mg/dL (12-60)
[2019-01-12] MEDS: NORMAL SALINE 1000 ML 1,000 ML IV PRN ×2 (15:48→20:47)
--- NOTE | 2019-01-12 19:45 | EKG REPORT ---
SEVERITY:- BORDERLINE ECG - SINUS RHYTHM PROBABLE LEFT ATRIAL ABNORMALITY BORDERLINE PROLONGED QT INTERVAL : Confirmed by: Lisa Mon MD 12-Jan-2019 19:44:25
[2019-01-12] MEDS: VANCOMYCIN HCL 750 MG in DEXTROSE 5%-WATER 250 ML IV SCH (21:39)
[2019-01-12] MEDS: CEFTRIAXONE 2 GM/D5W RTU 2 GM/50 ML RTUPB IV SCH (21:40)
[2019-01-13] MEDS: NORMAL SALINE 1000 ML 1,000 ML IV PRN ×4 (03:37→21:05)
[2019-01-13 04:37] LABS: ABSOLUTE BASOPHILS # (AUTO) 0.1 10^3/uL (0.0-0.2); ABSOLUTE MONOCYTES (AUTO) 1.2 10^3/uL (0.1-1.4); ABSOLUTE NEUT (AUTO) 12.8 10^3/uL (1.7-8.2); BASOPHILS % (AUTO) 0.6 % (0-2); EOSINOPHILS % (AUTO) 0.2 % (0-6); HEMATOCRIT 30.9 % (36.0-47.0); HEMOGLOBIN 10.2 g/dL (12.0-15.5); LYMPHOCYTES % (AUTO) 12.2 % (13-45); MEAN CORPUSCULAR HEMOGLOBIN 26.7 pg (27.0-33.4); MEAN CORPUSCULAR VOLUME 81 fl (80-97); MONOCYTES % (AUTO) 7.4 % (3-13); PLATELET COUNT 228 10^3/uL (150-450); RED BLOOD COUNT 3.81 10^6/uL (3.72-5.28); RED CELL DISTRIBUTION WIDTH 13.7 % (11.5-14.0); SEGMENTED NEUTROPHILS % (AUTO) 79.6 % (42-78); TOTAL CELLS COUNTED % (AUTO) 100 %
[2019-01-13 05:13] LABS: ALANINE AMINOTRANSFERASE 44 U/L (9-52); ALBUMIN 3.4 g/dL (3.5-5.0); ALKALINE PHOSPHATASE 72 U/L (38-126); ANION GAP 11 (5-19); ASPARTATE AMINO TRANSFERASE 54 U/L (14-36); BILIRUBIN,DIRECT 0.3 mg/dL (0.0-0.4); BILIRUBIN,TOTAL 0.3 mg/dL (0.2-1.3); BLOOD UREA NITROGEN 11 mg/dL (7-20); CARBON DIOXIDE 22 mmol/L (22-30); CHLORIDE 111 mmol/L (98-107); GLUCOSE 132 mg/dL (75-110); POTASSIUM 3.1 mmol/L (3.6-5.0); SODIUM 144.4 mmol/L (137-145); TOTAL PROTEIN 5.9 g/dL (6.3-8.2)
[2019-01-13] MEDS ORDERED: POTASSIUM CHLORIDE 10 MEQ CAPSULE.ER PO ONE (08:20)
[2019-01-13] MEDS: ENOXAPARIN SODIUM INJ 40 MG/0.4 ML DISP.SYRIN SUBCUT SCH (10:10)
[2019-01-13] MEDS: FAMOTIDINE 20 MG TABLET PO SCH ×2 (10:10→21:19)
[2019-01-13] MEDS: CEFTRIAXONE 2 GM/D5W RTU 2 GM/50 ML RTUPB IV SCH ×2 (10:11→21:19)
[2019-01-13] MEDS: DOCUSATE SODIUM 100 MG/10 ML UDC PO SCH ×2 (10:16→17:48)
[2019-01-13] MEDS: VANCOMYCIN HCL 750 MG in DEXTROSE 5%-WATER 250 ML IV SCH ×2 (13:27→21:19)
--- NOTE | 2019-01-13 14:44 | PDOC PROGRESS REPORT ---
Subjective Progress Note for:: 01/13/19 Subjective:: This is a 58 year old female patient with PMh of bipolar disorder on multiple antipsychotic medications including Risperdal, perphenazine and lithium brought by EMS for altered mental status and fall. She was oriented to self only. Due to her cognitive impairment, patient is not able to give any meaningful history. Her CT scan was negative for acute intracranial process. Her blood work shows WBC of 26,000 lactic acid of 3.8. LP was done on admission and she was stared on Rocephin, vancomycin and acyclovir. She reportedly took a lot of her psych meds at home. No acute event overnight. She is oriented to person and knows she is in a hospital. Denies other acute complaints. Reason For Visit: ACUTE ENCEPHALOPATHY, LEUKOCYTOSIS, STATUS POST Physical Exam Vital Signs: Temp Pulse Resp BP Pulse Ox 99.1 F 80 16 148/86 H 95 01/13/19 11:00 01/13/19 11:00 01/13/19 11:00 01/13/19 11:00 01/13/19 11:00 Intake & Output 01/12/19 01/13/19 01/14/19 06:59 06:59 06:59 Intake Total 4180 1050 Balance 4180 1050 Weight 170 lb 6.677 oz General appearance: PRESENT: no acute distress, well-developed, well-nourished Head exam: PRESENT: atraumatic, normocephalic Eye exam: PRESENT: conjunctiva pink, EOMI, PERRLA. ABSENT: scleral icterus Ear exam: PRESENT: normal external ear exam Mouth exam: PRESENT: moist, tongue midline Neck exam: ABSENT: carotid bruit, JVD, lymphadenopathy, thyromegaly Respiratory exam: PRESENT: clear to auscultation manolo. ABSENT: rales, rhonchi, wheezes Cardiovascular exam: PRESENT: RRR. ABSENT: diastolic murmur, rubs, systolic murmur Pulses: PRESENT: normal dorsalis pedis pul GI/Abdominal exam: PRESENT: normal bowel sounds, soft. ABSENT: distended, guarding, mass, organolmegaly, rebound, tenderness Rectal exam: PRESENT: deferred Neurological exam: PRESENT: altered, awake, oriented to person, CN II-XII grossly intact. ABSENT: motor sensory deficit Results Laboratory Results: 01/13/19 04:20 01/13/19 04:20 01/13/19 01/13/19 01/13/19 04:20 04:20 10:23 WBC 16.0 H RBC 3.81 Hgb 10.2 L Hct 30.9 L MCV 81 MCH 26.7 L MCHC 33.0 RDW 13.7 Plt Count 228 Seg Neutrophils % 79.6 H Lymphocytes % 12.2 L Monocytes % 7.4 Eosinophils % 0.2 Basophils % 0.6 Absolute Neutrophils 12.8 H Absolute Lymphocytes 2.0 Absolute Monocytes 1.2 Absolute Eosinophils 0.0 Absolute Basophils 0.1 Sodium 144.4 Potassium 3.1 L Chloride 111 H Carbon Dioxide 22 Anion Gap 11 BUN 11 Creatinine 0.84 Est GFR ( Amer) > 60 Est GFR (Non-Af Amer) > 60 Glucose 132 H Lactic Acid 0.7 Calcium 9.0 Total Bilirubin 0.3 AST 54 H ALT 44 Alkaline Phosphatase 72 Total Protein 5.9 L Albumin 3.4 L 01/12/19 06:50 Creatine Kinase 554 H Impressions: Guidance Fluoroscopy 01/12/19 00:00 IMPRESSION: Lumbar puncture under fluoroscopy. No immediate complication. Cervical Spine CT 01/12/19 06:37 IMPRESSION: No acute fracture or subluxation of the cervical spine. TECHNICAL DOCUMENTATION: Quality ID # 436: Final reports with documentation of one or more dose reduction techniques (e.g., Automated exposure control, adjustment of the mA and/or kV according to patient size, use of iterative reconstruction technique) copyright 2011 [employer]- All Rights Reserved Head CT 01/12/19 06:37 IMPRESSION: No acute intracranial findings. Chest X-Ray 01/12/19 08:29 IMPRESSION: NO ACUTE RADIOGRAPHIC FINDING IN THE CHEST. Lumbar Puncture 01/12/19 08:46 IMPRESSION: Lumbar puncture under fluoroscopy. No immediate complication. Assessment and Plan - Diagnosis (1) Acute encephalopathy Is this a current diagnosis for this admission?: Yes Plan: She appears more alert and responsive today. Likely from overdose of her antipsychotropics. She was empirically started on regimen for meningitis. but initial CSF fluid analysis is unremarkable. Await CSF culture result. Will discontinue antimicrobials pending result. Psych consulted. (2) Depression and bipolar disorder Is this a current diagnosis for this admission?: Yes Plan: Await further psych recommendations. (3) Elevated lactic acid level Is this a current diagnosis for this admission?: Yes Plan: Resolved with IV fluids. (4) Hypokalemia Is this a current diagnosis for this admission?: Yes - Time Time Spent with patient: 15-24 minutes
[2019-01-13] MEDS: RISPERIDONE 1 MG TABLET PO SCH (17:55)
[2019-01-14] MEDS: NORMAL SALINE 1000 ML 1,000 ML IV PRN ×3 (04:28→23:45)
[2019-01-14 06:35] LABS: ABSOLUTE BASOPHILS # (AUTO) 0.1 10^3/uL (0.0-0.2); ABSOLUTE EOSINOPHILS # (AUTO) 0.2 10^3/uL (0.0-0.6); ABSOLUTE LYMPHOCYTES (AUTO) 1.9 10^3/uL (0.5-4.7); ABSOLUTE MONOCYTES (AUTO) 0.6 10^3/uL (0.1-1.4); BASOPHILS % (AUTO) 1.3 % (0-2); EOSINOPHILS % (AUTO) 2.3 % (0-6); HEMATOCRIT 31.4 % (36.0-47.0); HEMOGLOBIN 10.6 g/dL (12.0-15.5); LYMPHOCYTES % (AUTO) 19.1 % (13-45); MEAN CORPUSCULAR HEMOGLOBIN 27.5 pg (27.0-33.4); MEAN CORPUSCULAR HGB CONC 33.7 g/dL (32.0-36.0); MEAN CORPUSCULAR VOLUME 82 fl (80-97); MONOCYTES % (AUTO) 6.1 % (3-13); PLATELET COUNT 240 10^3/uL (150-450); RED BLOOD COUNT 3.85 10^6/uL (3.72-5.28); RED CELL DISTRIBUTION WIDTH 13.6 % (11.5-14.0); SEGMENTED NEUTROPHILS % (AUTO) 71.2 % (42-78); TOTAL CELLS COUNTED % (AUTO) 100 %; WHITE BLOOD COUNT 9.8 10^3/uL (4.0-10.5)
[2019-01-14 06:57] LABS: ANION GAP 8 (5-19); BLOOD UREA NITROGEN 5 mg/dL (7-20); CALCIUM 8.6 mg/dL (8.4-10.2); CARBON DIOXIDE 25 mmol/L (22-30); CHLORIDE 109 mmol/L (98-107); CREATINE KINASE 1443 U/L (30-135); GLUCOSE 107 mg/dL (75-110); POTASSIUM 3.3 mmol/L (3.6-5.0); SODIUM 141.6 mmol/L (137-145)
[2019-01-14] MEDS ORDERED: POTASSIUM CHLORIDE 10 MEQ CAPSULE.ER PO ONE (10:15)
[2019-01-14] MEDS: ENOXAPARIN SODIUM INJ 40 MG/0.4 ML DISP.SYRIN SUBCUT SCH (10:44)
[2019-01-14] MEDS: CEFTRIAXONE 2 GM/D5W RTU 2 GM/50 ML RTUPB IV SCH ×2 (10:44→21:08)
[2019-01-14] MEDS: FAMOTIDINE 20 MG TABLET PO SCH ×2 (10:44→21:08)
[2019-01-14] MEDS: RISPERIDONE 1 MG TABLET PO SCH ×2 (10:44→18:12)
[2019-01-14 11:06] LABS: VANCOMYCIN,TROUGH 8.8 ug/mL (5.0-20.0)
[2019-01-14] MEDS: DOCUSATE SODIUM 100 MG/10 ML UDC PO SCH ×2 (12:20→18:10)
[2019-01-14] MEDS: VANCOMYCIN HCL 750 MG in DEXTROSE 5%-WATER 250 ML IV SCH (12:22)
--- NOTE | 2019-01-14 12:50 | PDOC PROGRESS REPORT ---
Subjective Progress Note for:: 01/14/19 Subjective:: This is a 58 year old female patient with PMh of bipolar disorder on multiple antipsychotic medications including Risperdal, perphenazine and lithium brought by EMS for altered mental status and fall. She was oriented to self only. Due to her cognitive impairment, patient is not able to give any meaningful history. Her CT scan was negative for acute intracranial process. Her blood work shows WBC of 26,000 lactic acid of 3.8. LP was done on admission and she was stared on Rocephin, vancomycin and acyclovir. She reportedly took a lot of her psych meds at home. 01/13: She is oriented to person and knows she is in a hospital. Denies other acute complaints. 01/14: No acute event overnight. She is more oriented and conversant today. She is oriented to person, knows she is in a hospital and month and year. No fever or chills. Psych has just evaluated her. Reason For Visit: ACUTE ENCEPHALOPATHY, LEUKOCYTOSIS, STATUS POST Physical Exam Vital Signs: Temp Pulse Resp BP Pulse Ox 98.2 F 70 18 166/79 H 96 01/14/19 11:19 01/14/19 11:19 01/14/19 11:19 01/14/19 11:19 01/14/19 11:19 Intake & Output 01/13/19 01/14/19 01/15/19 06:59 06:59 06:59 Intake Total 4180 4573 1355 Balance 4180 4573 1355 Weight 170 lb 6.677 oz 166 lb 10.711 oz General appearance: PRESENT: no acute distress, well-developed, well-nourished, other - hematoma on the right neck and a healing abrasion on the nose Head exam: PRESENT: atraumatic, normocephalic Eye exam: PRESENT: conjunctiva pink, EOMI, PERRLA. ABSENT: scleral icterus Ear exam: PRESENT: normal external ear exam Neck exam: ABSENT: carotid bruit, JVD, lymphadenopathy, thyromegaly Respiratory exam: PRESENT: clear to auscultation manolo. ABSENT: rales, rhonchi, wheezes Cardiovascular exam: PRESENT: RRR. ABSENT: diastolic murmur, rubs, systolic murmur Pulses: PRESENT: normal dorsalis pedis pul GI/Abdominal exam: PRESENT: normal bowel sounds, soft. ABSENT: distended, guarding, mass, organolmegaly, rebound, tenderness Rectal exam: PRESENT: deferred Neurological exam: PRESENT: alert, awake, oriented to person, oriented to place, oriented to time, CN II-XII grossly intact. ABSENT: motor sensory deficit Results Laboratory Results: 01/14/19 05:43 01/14/19 05:43 01/14/19 01/14/19 05:43 05:43 WBC 9.8 RBC 3.85 Hgb 10.6 L Hct 31.4 L MCV 82 MCH 27.5 MCHC 33.7 RDW 13.6 Plt Count 240 Seg Neutrophils % 71.2 Lymphocytes % 19.1 Monocytes % 6.1 Eosinophils % 2.3 Basophils % 1.3 Absolute Neutrophils 7.0 Absolute Lymphocytes 1.9 Absolute Monocytes 0.6 Absolute Eosinophils 0.2 Absolute Basophils 0.1 Sodium 141.6 Potassium 3.3 L Chloride 109 H Carbon Dioxide 25 Anion Gap 8 BUN 5 L Creatinine 0.58 Est GFR ( Amer) > 60 Est GFR (Non-Af Amer) > 60 Glucose 107 Calcium 8.6 01/12/19 01/14/19 06:50 05:43 Creatine Kinase 554 H 1443 H Impressions: Guidance Fluoroscopy 01/12/19 00:00 IMPRESSION: Lumbar puncture under fluoroscopy. No immediate complication. Cervical Spine CT 01/12/19 06:37 IMPRESSION: No acute fracture or subluxation of the cervical spine. TECHNICAL DOCUMENTATION: Quality ID # 436: Final reports with documentation of one or more dose reduction techniques (e.g., Automated exposure control, adjustment of the mA and/or kV according to patient size, use of iterative reconstruction technique) copyright 2011 [employer]- All Rights Reserved Head CT 01/12/19 06:37 IMPRESSION: No acute intracranial findings. Chest X-Ray 01/12/19 08:29 IMPRESSION: NO ACUTE RADIOGRAPHIC FINDING IN THE CHEST. Lumbar Puncture 01/12/19 08:46 IMPRESSION: Lumbar puncture under fluoroscopy. No immediate complication. Assessment and Plan - Diagnosis (1) Acute encephalopathy Is this a current diagnosis for this admission?: Yes Plan: She appears more alert and responsive today. Likely from overdose of her antips ychotropics. She was empirically started on regimen for meningitis but initial CSF fluid analysis is unremarkable. Await CSF culture result. Will discontinue antimicrobials pending result. Psych consulted. 01/14: Discontinue vancomycin. Continue Rocephin until blood CS is finally resulted as it is growing GPC /. (2) Depression and bipolar disorder Is this a current diagnosis for this admission?: Yes Plan: Psych home meds resumed. Await further psych recommendations. (3) Elevated lactic acid level Is this a current diagnosis for this admission?: Yes Plan: Resolved with IV fluids. (4) Hypokalemia Is this a current diagnosis for this admission?: Yes Plan: Replace with 40 meqs PO. - Time Time Spent with patient: 25-34 minutes
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
[2019-01-14] MEDS ORDERED: (PENDING PHARMACY ID) (Lithium Carbonate [Lithium Carbonate Er] 600 MG) PO SCH (18:00)
[2019-01-14] MEDS: ACETAMINOPHEN 325 MG TABLET PO PRN (22:14)
[2019-01-14] MEDS ORDERED: VANCOMYCIN HCL 1,250 MG in DEXTROSE 5%-WATER 250 ML IV SCH (23:00)
[2019-01-15] MEDS: ACETAMINOPHEN 325 MG TABLET PO PRN ×2 (05:44→18:39)
[2019-01-15 07:50] LABS: ABSOLUTE BASOPHILS # (AUTO) 0.1 10^3/uL (0.0-0.2); ABSOLUTE EOSINOPHILS # (AUTO) 0.3 10^3/uL (0.0-0.6); ABSOLUTE LYMPHOCYTES (AUTO) 1.5 10^3/uL (0.5-4.7); ABSOLUTE MONOCYTES (AUTO) 0.6 10^3/uL (0.1-1.4); ABSOLUTE NEUT (AUTO) 5.8 10^3/uL (1.7-8.2); BASOPHILS % (AUTO) 1.2 % (0-2); EOSINOPHILS % (AUTO) 3.2 % (0-6); HEMATOCRIT 32.4 % (36.0-47.0); HEMOGLOBIN 10.9 g/dL (12.0-15.5); MEAN CORPUSCULAR HGB CONC 33.5 g/dL (32.0-36.0); MEAN CORPUSCULAR VOLUME 81 fl (80-97); MONOCYTES % (AUTO) 7.2 % (3-13); PLATELET COUNT 246 10^3/uL (150-450); RED BLOOD COUNT 4.03 10^6/uL (3.72-5.28); RED CELL DISTRIBUTION WIDTH 13.5 % (11.5-14.0); SEGMENTED NEUTROPHILS % (AUTO) 70.4 % (42-78); TOTAL CELLS COUNTED % (AUTO) 100 %; WHITE BLOOD COUNT 8.2 10^3/uL (4.0-10.5)
[2019-01-15] MEDS ORDERED: LITHIUM CARBONATE 300 MG PO SCH (08:00)
[2019-01-15 08:10] LABS: ANION GAP 8 (5-19); BLOOD UREA NITROGEN 4 mg/dL (7-20); CALCIUM 8.8 mg/dL (8.4-10.2); CARBON DIOXIDE 26 mmol/L (22-30); CHLORIDE 108 mmol/L (98-107); CREATINE KINASE 1309 U/L (30-135); GLUCOSE 114 mg/dL (75-110); POTASSIUM 3.2 mmol/L (3.6-5.0); SODIUM 142.4 mmol/L (137-145)
[2019-01-15] MEDS ORDERED: POTASSIUM CHLORIDE 10 MEQ CAPSULE.ER PO ONE (09:15)
[2019-01-15] MEDS: DOCUSATE SODIUM 100 MG/10 ML UDC PO SCH ×2 (09:20→17:44)
[2019-01-15] MEDS: FAMOTIDINE 20 MG TABLET PO SCH ×2 (10:14→22:24)
[2019-01-15] MEDS: RISPERIDONE 1 MG TABLET PO SCH ×2 (10:14→17:44)
[2019-01-15] MEDS: CEFTRIAXONE 2 GM/D5W RTU 2 GM/50 ML RTUPB IV SCH (10:15)
[2019-01-15] MEDS: ENOXAPARIN SODIUM INJ 40 MG/0.4 ML DISP.SYRIN SUBCUT SCH (10:15)
[2019-01-15] MEDS: POTASSI CL 20 MEQ/50 ML RIDER 20 MEQ/50 ML RTUPB IV SCH ×2 (11:44→12:52)
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
--- NOTE | 2019-01-15 12:59 | PDOC PROGRESS REPORT ---
Subjective Progress Note for:: 01/15/19 Subjective:: This is a 58 year old female patient with PMh of bipolar disorder on multiple antipsychotic medications including Risperdal, perphenazine and lithium brought by EMS for altered mental status and fall. She was oriented to self only. Due to her cognitive impairment, patient is not able to give any meaningful history. Her CT scan was negative for acute intracranial process. Her blood work shows WBC of 26,000 lactic acid of 3.8. LP was done on admission and she was stared on Rocephin, vancomycin and acyclovir. She reportedly took a lot of her psych meds at home. 01/13: She is oriented to person and knows she is in a hospital. Denies other acute complaints. 01/14: She is more oriented and conversant today. She is oriented to person, knows she is in a hospital and month and year. No fever or chills. Psych has just evaluated her. 01/15: No acute event overnight. Patient is now oriented to person, place and month/year but is not able to recall what happened at home. Discussed with psych as well. Appears patient was found to be unconscious in the bathroom at home and that patient received an unrecalled medication/injection prior to that at [facility]. She does complain of sore throat but on exam, there is only minimal erythema on the pharyngeal wall with no exudates. Reason For Visit: ACUTE ENCEPHALOPATHY, LEUKOCYTOSIS, STATUS POST Physical Exam Vital Signs: Temp Pulse Resp BP Pulse Ox 98.3 F 74 17 144/85 H 94 01/15/19 11:38 01/15/19 11:38 01/15/19 11:38 01/15/19 11:38 01/15/19 11:38 Intake & Output 01/14/19 01/15/19 01/16/19 06:59 06:59 06:59 Intake Total 4573 3589 50 Balance 4573 3589 50 Weight 166 lb 10.711 oz 164 lb 14.492 oz General appearance: PRESENT: no acute distress, well-developed, well-nourished Head exam: PRESENT: atraumatic, normocephalic Eye exam: PRESENT: conjunctiva pink, EOMI, PERRLA. ABSENT: scleral icterus Ear exam: PRESENT: normal external ear exam Mouth exam: PRESENT: moist, tongue midline Neck exam: ABSENT: carotid bruit, JVD, lymphadenopathy, thyromegaly Respiratory exam: PRESENT: clear to auscultation manolo. ABSENT: rales, rhonchi, wheezes Cardiovascular exam: PRESENT: RRR. ABSENT: diastolic murmur, rubs, systolic murmur Pulses: PRESENT: normal dorsalis pedis pul GI/Abdominal exam: PRESENT: normal bowel sounds, soft. ABSENT: distended, guarding, mass, organolmegaly, rebound, tenderness Rectal exam: PRESENT: deferred Neurological exam: PRESENT: alert, awake, oriented to person, oriented to place, CN II-XII grossly intact. ABSENT: motor sensory deficit Results Laboratory Results: 01/15/19 07:29 01/15/19 07:29 01/15/19 01/15/19 07:29 07:29 WBC 8.2 RBC 4.03 Hgb 10.9 L Hct 32.4 L MCV 81 MCH 27.0 MCHC 33.5 RDW 13.5 Plt Count 246 Seg Neutrophils % 70.4 Lymphocytes % 18.0 Monocytes % 7.2 Eosinophils % 3.2 Basophils % 1.2 Absolute Neutrophils 5.8 Absolute Lymphocytes 1.5 Absolute Monocytes 0.6 Absolute Eosinophils 0.3 Absolute Basophils 0.1 Sodium 142.4 Potassium 3.2 L Chloride 108 H Carbon Dioxide 26 Anion Gap 8 BUN 4 L Creatinine 0.54 Est GFR ( Amer) > 60 Est GFR (Non-Af Amer) > 60 Glucose 114 H Calcium 8.8 01/12/19 06:50 Catheterized Urine Urine Culture - Final NO GROWTH 2 DAYS 01/12/19 01/14/19 01/15/19 06:50 05:43 07:29 Creatine Kinase 554 H 1443 H 1309 H Impressions: Guidance Fluoroscopy 01/12/19 00:00 IMPRESSION: Lumbar puncture under fluoroscopy. No immediate complication. Cervical Spine CT 01/12/19 06:37 IMPRESSION: No acute fracture or subluxation of the cervical spine. TECHNICAL DOCUMENTATION: Quality ID # 436: Final reports with documentation of one or more dose reduction techniques (e.g., Automated exposure control, adjustment of the mA and/or kV according to patient size, use of iterative reconstruction technique) copyright 2011 [employer]- All Rights Reserved Head CT 01/12/19 06:37 IMPRESSION: No acute intracranial findings. Chest X-Ray 01/12/19 08:29 IMPRESSION: NO ACUTE RADIOGRAPHIC FINDING IN THE CHEST. Lumbar Puncture 01/12/19 08:46 IMPRESSION: Lumbar puncture under fluoroscopy. No immediate complication. Assessment and Plan - Diagnosis (1) Acute encephalopathy Is this a current diagnosis for this admission?: Yes Plan: She appears more alert and responsive today. Likely from overdose of her antipsychotropics. She was empirically started on regimen for meningitis but initial CSF fluid analysis is unremarkable. Await CSF culture result. Will discontinue antimicrobials pending result. Psych consulted. 01/14: Discontinue vancomycin. Continue Rocephin until blood CS is finally resulted as it is growing GPC 09/07. 01/15: Patient is now oriented to person, place and month/year but is not able to recall what happened at home. Discussed with psych as well. Appears patient was found to be unsconscious in the bathroom at home and that patient received an unrecalled medication/injection prior to that at [facility]. Will request records from [facility]. Check orthostats and carotid doppler. (2) Depression and bipolar disorder Is this a current diagnosis for this admission?: Yes Plan: Psych home meds resumed. (3) Elevated lactic acid level Is this a current diagnosis for this admission?: Yes Plan: Resolved with IV fluids. (4) Hypokalemia Is this a current diagnosis for this admission?: Yes Plan: Replace with 40 meqs PO. 01/15: Still low after replacement. Replace with both PO and IV today. (5) Rhabdomyolysis Is this a current diagnosis for this admission?: Yes Plan: Secondary to fall/syncope. - Time Time Spent with patient: 25-34 minutes
[2019-01-15] MEDS: NORMAL SALINE 1000 ML 1,000 ML IV PRN (14:25)
[2019-01-15 16:08] LABS: ANION GAP 10 (5-19); BLOOD UREA NITROGEN 3 mg/dL (7-20); CALCIUM 8.8 mg/dL (8.4-10.2); CARBON DIOXIDE 26 mmol/L (22-30); CHLORIDE 108 mmol/L (98-107); GLUCOSE 106 mg/dL (75-110); POTASSIUM 3.7 mmol/L (3.6-5.0); SODIUM 143.5 mmol/L (137-145)
[2019-01-15] MEDS ORDERED: LORATADINE 10 MG TABLET PO ONE (18:30)
[2019-01-15] MEDS ORDERED: FLUTICASONE NASAL SPRAY 50 MCG/SPRY 120 SPRAY/16 GM ONE (22:13)
[2019-01-15] MEDS: FLUTICASONE NASAL SPRAY 50 MCG/SPRY 120 SPRAY/16 GM NASL SCH (22:24)
[2019-01-16 06:38] LABS: ANION GAP 8 (5-19); BLOOD UREA NITROGEN 4 mg/dL (7-20); CALCIUM 9.2 mg/dL (8.4-10.2); CARBON DIOXIDE 29 mmol/L (22-30); CHLORIDE 106 mmol/L (98-107); CREATINE KINASE 867 U/L (30-135); GLUCOSE 105 mg/dL (75-110); POTASSIUM 3.5 mmol/L (3.6-5.0); SODIUM 143.2 mmol/L (137-145)
[2019-01-16] MEDS: ACETAMINOPHEN 325 MG TABLET PO PRN ×2 (08:38→13:25)
[2019-01-16] MEDS: RISPERIDONE 1 MG TABLET PO SCH ×2 (09:47→17:31)
[2019-01-16] MEDS: ENOXAPARIN SODIUM INJ 40 MG/0.4 ML DISP.SYRIN SUBCUT SCH (09:47)
[2019-01-16] MEDS: LORATADINE 10 MG TABLET PO SCH (09:47)
[2019-01-16] MEDS: FAMOTIDINE 20 MG TABLET PO SCH ×2 (09:47→21:21)
[2019-01-16] MEDS: DOCUSATE SODIUM 100 MG/10 ML UDC PO SCH (09:48)
[2019-01-16] MEDS: FLUTICASONE NASAL SPRAY 50 MCG/SPRY 120 SPRAY/16 GM NASL SCH ×2 (09:49→21:21)
[2019-01-16] MEDS: CEFTRIAXONE SODIUM 1,000 MG in DEXTROSE 5%-WATER 50 ML IV SCH (09:50)
[2019-01-16] MEDS ORDERED: CEFTRIAXONE 1 GM/D5W RTU 1 GM/50 ML RTUPB IV SCH (10:00)
[2019-01-16] MEDS ORDERED: PROMETHAZINE HCL INJ 25 MG/1 ML VIAL IV PRN (13:00)
--- NOTE | 2019-01-16 14:07 | RADIOLOGY REPORT (SQ) ---
EXAM DESCRIPTION: CAROTID DOPPLER COMPLETED DATE/TIME: 01/16/2019 1:44 pm REASON FOR STUDY: syncope COMPARISON: None. TECHNIQUE: Grayscale ultrasound, Doppler velocity and spectra, and color Doppler images acquired of the extra-cranial carotid and vertebral arteries. Images stored on PACS. LIMITATIONS: None. FINDINGS: RIGHT CAROTID CCA Velocities: Within normal limits. ICA Velocities Peak systolic 63 cm/s. End diastolic 27 cm/s. Proximal ICA/CCA peak systolic ratio 1.23. Spectra normal. No significant plaque. LEFT CAROTID CCA Velocities: Within normal limits. ICA Velocities Peak systolic 61 cm/s. End diastolic 27 cm/s. Proximal ICA/CCA peak systolic ratio 1.01. Spectra normal. No significant plaque. VERTEBRAL ARTERIES: Antegrade flow. Normal waveforms. SUBCLAVIAN ARTERIES: No finding. OTHER: No other significant finding. IMPRESSION: NO HEMODYNAMICALLY SIGNIFICANT STENOSIS. COMMENT: Quality ID #195: Velocity criteria are extrapolated from the diameter data as defined by t he Society of Radiologists in Ultrasound Consensus Conference. Radiology 2003: 229; 340-346. TECHNICAL DOCUMENTATION: JOB ID: [id number] [employer]- All Rights Reserved Reading location - IP/workstation name: [email or web address]
[2019-01-16] MEDS ORDERED: POTASSIUM CHLORIDE 10 MEQ CAPSULE.ER PO ONE (15:30)
--- NOTE | 2019-01-16 15:54 | PDOC PROGRESS REPORT ---
Subjective Progress Note for:: 01/16/19 Subjective:: This is a 58 year old female patient with PMh of bipolar disorder on multiple antipsychotic medications including Risperdal, perphenazine and lithium brought by EMS for altered mental status and fall. She was oriented to self only. Due to her cognitive impairment, patient is not able to give any meaningful history. Her CT scan was negative for acute intracranial process. Her blood work shows WBC of 26,000 lactic acid of 3.8. LP was done on admission and she was stared on Rocephin, vancomycin and acyclovir. She reportedly took a lot of her psych meds at home. 01/13: She is oriented to person and knows she is in a hospital. Denies other acute complaints. 01/14: She is more oriented and conversant today. She is oriented to person, knows she is in a hospital and month and year. No fever or chills. Psych has just evaluated her. 01/15: Patient is now oriented to person, place and month/year but is not able to recall what happened at home. Discussed with psych as well. Appears patient was found to be unconscious in the bathroom at home and that patient received an unrecalled medication/injection prior to that at [facility]. She does com plain of sore throat but on exam, there is only minimal erythema on the pharyngeal wall with no exudates. 01/16: No acute event overnight. Appear she is back to her baseline. Lab called that blood culture came back positive for Streptococcus viridans 1/2. She did came in with leukocytosis and lactic acidosis with no exact definitive focus. Will repeat blood culture and will order a TTE to assess for vegetation. Reason For Visit: ACUTE ENCEPHALOPATHY, LEUKOCYTOSIS, STATUS POST Physical Exam Vital Signs: Temp Pulse Resp BP Pulse Ox 98.1 F 78 18 144/90 H 95 01/16/19 11:12 01/16/19 11:12 01/16/19 11:12 01/16/19 11:12 01/16/19 11:12 Intake & Output 01/15/19 01/16/19 01/17/19 06:59 06:59 06:59 Intake Total 3589 2390 427 Output Total 400 Balance 3589 1990 427 Weight 164 lb 14.492 oz 164 lb 10.965 oz General appearance: PRESENT: no acute distress, well-developed, well-nourished Head exam: PRESENT: atraumatic, normocephalic Eye exam: PRESENT: conjunctiva pink, EOMI, PERRLA. ABSENT: scleral icterus Ear exam: PRESENT: normal external ear exam Mouth exam: PRESENT: moist, tongue midline Neck exam: ABSENT: carotid bruit, JVD, lymphadenopathy, thyromegaly Respiratory exam: PRESENT: clear to auscultation manolo. ABSENT: rales, rhonchi, wheezes Cardiovascular exam: PRESENT: RRR. ABSENT: diastolic murmur, rubs, systolic murmur Pulses: PRESENT: normal dorsalis pedis pul GI/Abdominal exam: PRESENT: normal bowel sounds, soft. ABSENT: distended, guarding, mass, organolmegaly, rebound, tenderness Rectal exam: PRESENT: deferred Neurological exam: PRESENT: alert, awake, oriented to person, oriented to place, oriented to time, oriented to situation, CN II-XII grossly intact. ABSENT: motor sensory deficit Results Laboratory Results: 01/15/19 07:29 01/16/19 05:31 01/15/19 01/16/19 15:35 05:31 Sodium 143.5 143.2 Potassium 3.7 3.5 L Chloride 108 H 106 Carbon Dioxide 26 29 Anion Gap 10 8 BUN 3 L 4 L Creatinine 0.66 0.57 Est GFR ( Amer) > 60 > 60 Est GFR (Non-Af Amer) > 60 > 60 Glucose 106 105 Calcium 8.8 9.2 01/12/19 11:13 Cerebral Spinal Fluid - Csf Gram Stain - Final 01/12/19 11:13 Cerebral Spinal Fluid - Csf CSF Culture - Final NO GROWTH 3 DAYS 01/12/19 01/14/19 01/15/19 06:50 05:43 07:29 Creatine Kinase 554 H 1443 H 1309 H 01/16/19 05:31 Creatine Kinase 867 H Impressions: Guidance Fluoroscopy 01/12/19 00:00 IMPRESSION: Lumbar puncture under fluoroscopy. No immediate complication. Cervical Spine CT 01/12/19 06:37 IMPRESSION: No acute fracture or subluxation of the cervical spine. TECHNICAL DOCUMENTATION: Quality ID # 436: Final reports with documentation of one or more dose reduction techniques (e.g., Automated exposure control, adjustment of the mA and/or kV according to patient size, use of iterative reconstruction technique) copyright 2010 [employer]- All Rights Reserved Head CT 01/12/19 06:37 IMPRESSION: No acute intracranial findings. Chest X-Ray 01/12/19 08:29 IMPRESSION: NO ACUTE RADIOGRAPHIC FINDING IN THE CHEST. Lumbar Puncture 01/12/19 08:46 IMPRESSION: Lumbar puncture under fluoroscopy. No immediate complication. Assessment and Plan - Diagnosis (1) Bacteremia due to Streptococcus Is this a current diagnosis for this admission?: Yes Plan: 01/16: Lab called that blood culture came back positive for Streptococcus viridans 09/07. She did came in with leukocytosis and lactic acidosis with no exact definitive focus. Will repeat blood culture and will order a TTE to assess for vegetation. Continue Rocephin. (2) Acute encephalopathy Is this a current diagnosis for this admission?: Yes Plan: She appears more alert and responsive today. Likely from overdose of her anti psychotropics. She was empirically started on regimen for meningitis but initial CSF fluid analysis is unremarkable. Await CSF culture result. Will discontinue antimicrobials pending result. Psych consulted. 01/14: Discontinue vancomycin. Continue Rocephin until blood CS is finally resulted as it is growing GPC 09/07. 01/15: Patient is now oriented to person, place and month/year but is not able to recall what happened at home. Discussed with psych as well. Appears patient was found to be unsconscious in the bathroom at home and that patient received an unrecalled medication/injection prior to that at [facility]. Will request records from [facility]. Check orthostats and carotid doppler. (3) Depression and bipolar disorder Is this a current diagnosis for this admission?: Yes Plan: Psych home meds resumed. (4) Elevated lactic acid level Is this a current diagnosis for this admission?: Yes Plan: Resolved with IV fluids. (5) Hypokalemia Is this a current diagnosis for this admission?: Yes Plan: Replace with 40 meqs PO. 01/15: Still low after replacement. Replace with both PO and IV today. 01/16: Improved. (6) Rhabdomyolysis Is this a current diagnosis for this admission?: Yes Plan: Secondary to fall/syncope. - Time Time Spent with patient: 25-34 minutes
[2019-01-16] MEDS: LITHIUM CARBONATE 450 MG TABLET.ER PO SCH (17:31)
[2019-01-16] MEDS: DOCUSATE SODIUM 100 MG CAPSULE PO SCH (17:31)
[2019-01-16] MEDS: MAGNESIUM SULFATE/D5W 1 GM/100 ML RTUPB IV SCH ×2 (18:58→20:20)
[2019-01-17 05:22] LABS: ANION GAP 10 (5-19); BLOOD UREA NITROGEN 7 mg/dL (7-20); CALCIUM 9.6 mg/dL (8.4-10.2); CARBON DIOXIDE 25 mmol/L (22-30); CHLORIDE 107 mmol/L (98-107); CREATINE KINASE 351 U/L (30-135); GLUCOSE 115 mg/dL (75-110); POTASSIUM 3.5 mmol/L (3.6-5.0)
[2019-01-17] MEDS: LITHIUM CARBONATE 450 MG TABLET.ER PO SCH ×2 (05:24→17:28)
[2019-01-17] MEDS: DOCUSATE SODIUM 100 MG CAPSULE PO SCH ×2 (09:21→17:26)
[2019-01-17] MEDS: CEFTRIAXONE SODIUM 1,000 MG in DEXTROSE 5%-WATER 50 ML IV SCH (09:21)
[2019-01-17] MEDS: FLUTICASONE NASAL SPRAY 50 MCG/SPRY 120 SPRAY/16 GM NASL SCH ×2 (09:21→21:04)
[2019-01-17] MEDS: LORATADINE 10 MG TABLET PO SCH (09:21)
[2019-01-17] MEDS: FAMOTIDINE 20 MG TABLET PO SCH ×2 (09:21→21:04)
[2019-01-17] MEDS: RISPERIDONE 1 MG TABLET PO SCH ×2 (09:21→17:28)
[2019-01-17] MEDS: ENOXAPARIN SODIUM INJ 40 MG/0.4 ML DISP.SYRIN SUBCUT SCH (09:22)
[2019-01-17] MEDS ORDERED: LORATADINE 10 MG TABLET PO PRN (11:09)
--- NOTE | 2019-01-17 11:38 | PDOC PROGRESS REPORT ---
Subjective Progress Note for:: 01/17/19 Subjective:: 58 year old female patient with psychiatric disorder and taking multiple antipsychotic medications including Risperdal, perphenazine and lithium brought by EMS for altered mental status and fall. Patient is oriented to self only. Due to her cognitive impairment, patient is not able to give any meaningful history. Brief history is obtained from ER attending note. Per ER attending note, patient has been on multiple psychiatric medication presented with fall. Is unclear when she was found down of the fall was witnessed, EMS is not here to give a report. Apparently she told her family she might have taken too many psych medications. When I see the patient patient is awake alert. She is disheveled and unkempt. She has several lacerations and cuts on her forehead and she has also erythema on her neck. Her CT scan is negative for acute for ac [place] intracranial process. Her blood work shows WBC of 26,000 lactic acid of 3.8. Her lithium level is pending. Patient has low-grade fever, altered mental status and leukocytosis so I think it is appropriate to do lumbar puncture to rule out meningitis. In the meantime patient has been started on ceftriaxone and vancomycin. 01/[id number]-tgdf-old female with history of psychiatric disorder on multiple psych medications brought in by EMS after found to be in altered mental status and history of fall. Patient today is comfortable in the bed communicating well. Able to give her data but able to tell me where she is at. Not in distress. Blood cultures are showing strep viridans echocardiogram was done yesterday report is pending. Repeat blood cultures yesterday are negative. latest WBC count is 8200. No acute events in the last 24 hours. Patient is afebrile. Reason For Visit: ACUTE ENCEPHALOPATHY, LEUKOCYTOSIS, STATUS POST Physical Exam Vital Signs: Temp Pulse Resp BP Pulse Ox 97.8 F 60 16 126/73 H 99 01/17/19 08:02 01/17/19 08:02 01/17/19 08:02 01/17/19 08:02 01/17/19 08:02 Intake & Output 01/16/19 01/17/19 01/18/19 06:59 06:59 06:59 Intake Total 2390 1202 Output Total 400 Balance 1989 120 Weight 74.7 kg 72.3 kg General appearance: PRESENT: no acute distress, obese Eye exam: PRESENT: PERRLA Mouth exam: PRESENT: moist, tongue midline Neck exam: ABSENT: carotid bruit, JVD, lymphadenopathy, thyromegaly Respiratory exam: PRESENT: clear to auscultation manolo. ABSENT: rales, rhonchi, wheezes Cardiovascular exam: PRESENT: RRR. ABSENT: diastolic murmur, rubs, systolic murmur GI/Abdominal exam: PRESENT: normal bowel sounds, soft. ABSENT: distended, guar ding, mass, organolmegaly, rebound, tenderness Rectal exam: PRESENT: deferred Extremities exam: PRESENT: full ROM. ABSENT: calf tenderness, clubbing, pedal edema Neurological exam: PRESENT: alert, awake, oriented to person, oriented to place, oriented to time, oriented to situation, CN II-XII grossly intact. ABSENT: motor sensory deficit Psychiatric exam: PRESENT: appropriate affect, normal mood. ABSENT: homicidal ideation, suicidal ideation Results Laboratory Results: 01/15/19 07:29 01/17/19 04:09 01/16/19 01/17/19 05:31 04:09 Sodium 142.0 Potassium 3.5 L Chloride 107 Carbon Dioxide 25 Anion Gap 10 BUN 7 Creatinine 0.56 Est GFR ( Amer) > 60 Est GFR (Non-Af Amer) > 60 Glucose 115 H Calcium 9.6 Magnesium 1.5 L 2.3 01/12/19 09:23 Blood Blood Culture - Final NO GROWTH IN 5 DAYS 01/12/19 06:50 Blood Blood Culture - Final Viridans Streptococcus 01/12/19 01/14/19 01/15/19 06:50 05:43 07:29 Creatine Kinase 554 H 1443 H 1309 H 01/16/19 01/17/19 05:31 04:09 Creatine Kinase 867 H 351 H Impressions: Guidance Fluoroscopy 01/12/19 00:00 IMPRESSION: Lumbar puncture under fluoroscopy. No immediate complication. Cervical Spine CT 01/12/19 06:37 IMPRESSION: No acute fracture or subluxation of the cervical spine. TECHNICAL DOCUMENTATION: Quality ID # 436: Final reports with documentation of one or more dose reduction techniques (e.g., Automated exposure control, adjustment of the mA and/or kV according to patient size, use of iterative reconstruction technique) copyright 2011 [employer]- All Rights Reserved Head CT 01/12/19 06:37 IMPRESSION: No acute intracranial findings. Chest X-Ray 01/12/19 08:29 IMPRESSION: NO ACUTE RADIOGRAPHIC FINDING IN THE CHEST. Lumbar Puncture 01/12/19 08:46 IMPRESSION: Lumbar puncture under fluoroscopy. No immediate complication. Carotid Doppler Study 01/16/19 00:00 IMPRESSION: NO HEMODYNAMICALLY SIGNIFICANT STENOSIS. Assessment and Plan - Diagnosis (1) Bacteremia due to Streptococcus Is this a current diagnosis for this admission?: Yes Plan: 01/16: Lab called that blood culture came back positive for Streptococcus viridans 09/07. She did came in with leukocytosis and lactic acidosis with no exact definitive focus. Will repeat blood culture and will order a TTE to assess for vegetation. Continue Rocephin. 01/17/2019-blood cultures are positive for strep viridans. Repeat blood cultures from yesterday are pending. Patient has echocardiogram was done waiting for the report. Presently on IV Rocephin. Afebrile. T-max is 98.2. (2) Acute encephalopathy Is this a current diagnosis for this admission?: Yes Plan: She appears more alert and responsive today. Likely from overdose of her antipsychotropics. She was empirically started on regimen for meningitis but initial CSF fluid analysis is unremarkable. Await CSF culture result. Will discontinue antimicrobials pending result. Psych consulted. 01/14: Discontinue vancomycin. Continue Rocephin until blood CS is finally resulted as it is growing GPC 09/07. 01/15: Patient is now oriented to person, place and month/year but is not able to recall what happened at home. Discussed with psych as well. Appears patient was found to be unsconscious in the bathroom at home and that patient received an unrecalled medication/injection prior to that at [facility]. Will request records from [facility]. Check orthostats and carotid doppler. 01/17/2019-patient is able to tell her date of able to tell me that she is in [facility]. Not in distress. Complaining of chest congestion. Echocardiogram was done waiting for the report. Altered mental status may be secondary to overdose with antipsychotic. LP was done during the hospital stay which was negative. Presently on IV Rocephin for strep viridans. (3) Depression and bipolar disorder Is this a current diagnosis for this admission?: Yes Plan: Psych home meds resumed. 01/17/2019-patient denies any anxiety depression. Presently on benztropine 1 mg p.o. twice daily, lithium 450 mg every 12 hours, Risperdal 1 mg p.o. twice a day. [place] level on 01/12/2019 is 1.2. (4) Elevated lactic acid level Is this a current diagnosis for this admission?: Yes (5) Hypokalemia Is this a current diagnosis for this admission?: Yes Plan: Replace with 40 meqs PO. 01/15: Still low after replacement. Replace with both PO and IV today. 01/16: Improved. 01/17/2019-latest potassium level is 3.5 today. To continue potassium 40 mg p.o. daily. (6) Rhabdomyolysis Is this a current diagnosis for this admission?: Yes Plan: Secondary to fall/syncope. 01/17/2019-patient came in with elevated CPK levels. Most likely secondary to fall. (7) Leukocytosis Is this a current diagnosis for this admission?: Yes Plan: Patient has marked leukocytosis of 26,000. We will repeat her CBC in a.m. 01/17/2019-patient's WBC count is 8.2 on 01/23/2019. On admission WBC count is 26,400. Blood culture positive for strep viridans. Elevated WBC most likely secondary to sepsis. - Time Time Spent with patient: 25-34 minutes Medications reviewed and adjusted accordingly: Yes Anticipated discharge: SNF
[2019-01-17] MEDS: HYDROXYZINE PAMOATE 50 MG CAPSULE PO SCH ×2 (15:33→21:04)
[2019-01-17] MEDS: BENZTROPINE MESYLATE 1 MG TABLET PO SCH (17:28)
--- NOTE | 2019-01-17 19:53 | XCELERA REPORT ---
[address] [address] Transthoracic Echocardiogram Report Name: KYLER INFANTE Age: 58 yrs Gender: Female : 1960 Patient Status: Inpatient Patient Location: [address] [place], [place] [address] Study Date: 01/16/2019 06:28 PM Height: 64 in Weight: 164 lb BSA: 1.8 m2 Procedure: A two-dimensional transthoracic echocardiogram with color flow and Doppler was performed. Study Quality: Fair. Reason For Study: assess for vegetations History: assess for Valvular vegetations. Ordering Physician: CLARICE BRAY Performed By: Alma Pierre Interpretation Summary The left ventricle is normal in size. There is normal left ventricular wall thickness. LV EF is > than 60% The left ventricular ejection fraction is within normal limits. Doppler measurements suggest impaired left ventricular relaxation, which is associated with grade I/IV or mild diastolic dysfunction The left ventricular wall motion is normal. No ASD,VSD,or PFO seen. The right ventricle is normal in size and function. The right atrium is normal. The left atrial size is normal. There is no evidence of mitral valve prolapse. There is no vegetation seen on the mitral valve. There is no mitral valve stenosis. There is a trace amount of mitral regurgitation There is no aortic valvular vegetation. There is no aortic valve stenosis There is no LVOT obstruction. No aortic regurgitation is present. There is no tricuspid stenosis. There is a trace amount of tricuspid regurgitation Right ventricular systolic pressure is normal. RVSP is 21 to 26 mm of Hg , with RA mean of 5 to 10. Artifact on Tricuspid Valve.No vegetation seen (Confirmed by another interogation of the Tricuspid valve. There is no vegetation on the pulmonic valve. There is no pulmonic valvular stenosis. There is a trace amount of pulmonic regurgitation The aortic root is normal size. The inferior vena cava appeared normal and decreased > 50% with respiration (RAP 5-10 mmHg) There is no pericardial effusion. MMode/2D Measurements & Calculations RVDd: 2.6 cm LVIDd: 4.1 cm FS: 27.9 % Ao root diam: 3.4 cm IVSd: 1.1 cm LVIDs: 2.9 cm EDV(Teich): Ao root area: LVPWd: 0.95 cm 73.1 ml 8.8 cm2 ESV(Teich): LA dimension: 2.7 cm 33.2 ml EF(Teich): 54.6 % LVLd ap4: 6.7 cm SV(MOD-sp4): EDV(MOD-sp4): 29.0 ml 41.0 ml LVLs ap4: 4.5 cm ESV(MOD-sp4): 12.0 ml EF(MOD-sp4): 70.7 % Doppler Measurements & Calculations MV E max benny: MV P1/2t max benny: Ao V2 max: LV V1 max P.6 cm/sec 79.6 cm/sec 119.4 cm/sec 3.4 mmHg MV A max benny: MV P1/2t: 48.6 msec Ao max PG: LV V1 max: 97.7 cm/sec MVA(P1/2t): 4.5 cm2 5.7 mmHg 92.3 cm/sec MV E/A: 0.67 MV dec slope: 479.7 cm/sec2 MV dec time: 0.19 sec PA V2 max: PI end-d benny: TR max benny: MV P1/2t-pr_phl: 90.9 cm/sec 109.9 cm/sec 199.1 cm/sec 48.6 msec PA max PG: TR max P.3 mmHg 15.9 mmHg Left Ventricle The left ventricle is normal in size. There is normal left ventricular wall thickness. LV EF is > than 60%. The left ventricular ejection fraction is within normal limits. Doppler measurements suggest impaired left ventricular relaxation, which is associated with grade I/IV or mild diastolic dysfunction. The left ventricular wall motion is normal. No ASD,VSD,or PFO seen. Right Ventricle The right ventricle is normal in size and function. Atria The right atrium is normal. The left atrial size is normal. Mitral Valve There is no evidence of mitral valve prolapse. There is no vegetation seen on the mitral valve. There is no mitral valve stenosis. There is a trace amount of mitral regurgitation. Aortic Valve There is no aortic valvular vegetation. There is no aortic valve stenosis. There is no LVOT obstruction. No aortic regurgitation is present. Tricuspid Valve There is no tricuspid stenosis. There is a trace amount of tricuspid regurgitation. Right ventricular systolic pressure is normal. RVSP is 21 to 26 mm of Hg , with RA mean of 5 to 10. Artifact on Tricuspid Valve.No vegetation seen (Confirmed by another interogation of the Tricuspid valve. Pulmonic Valve There is no vegetation on the pulmonic valve. There is no pulmonic valvular stenosis. There is a trace amount of pulmonic regurgitation. Great Vessels The aortic root is normal size. The inferior vena cava appeared normal and decreased > 50% with respiration (RAP 5-10 mmHg). Effusions There is no pericardial effusion. : CLARICE BRAY > Lisa Mon
[2019-01-17] MEDS ORDERED: MELATONIN 5 MG TABLET PO SCH (22:00)
[2019-01-17] MEDS ORDERED: (PENDING PHARMACY ID) (Melatonin [Melatonin] 10 MG) PO SCH (22:00)
[2019-01-17] MEDS ORDERED: PERPHENAZINE 2 MG PO SCH (22:00)
[2019-01-18] MEDS: HYDROXYZINE PAMOATE 50 MG CAPSULE PO SCH (05:06)
[2019-01-18] MEDS: LITHIUM CARBONATE 450 MG TABLET.ER PO SCH (05:06)
[2019-01-18 05:51] LABS: ABSOLUTE BASOPHILS # (AUTO) 0.1 10^3/uL (0.0-0.2); ABSOLUTE EOSINOPHILS # (AUTO) 0.5 10^3/uL (0.0-0.6); ABSOLUTE LYMPHOCYTES (AUTO) 2.1 10^3/uL (0.5-4.7); ABSOLUTE MONOCYTES (AUTO) 0.8 10^3/uL (0.1-1.4); ABSOLUTE NEUT (AUTO) 5.4 10^3/uL (1.7-8.2); BASOPHILS % (AUTO) 1.4 % (0-2); EOSINOPHILS % (AUTO) 5.2 % (0-6); HEMATOCRIT 34.2 % (36.0-47.0); HEMOGLOBIN 11.4 g/dL (12.0-15.5); LYMPHOCYTES % (AUTO) 24.1 % (13-45); MEAN CORPUSCULAR HGB CONC 33.4 g/dL (32.0-36.0); MEAN CORPUSCULAR VOLUME 81 fl (80-97); MONOCYTES % (AUTO) 8.7 % (3-13); PLATELET COUNT 253 10^3/uL (150-450); RED BLOOD COUNT 4.24 10^6/uL (3.72-5.28); RED CELL DISTRIBUTION WIDTH 13.9 % (11.5-14.0); SEGMENTED NEUTROPHILS % (AUTO) 60.6 % (42-78); TOTAL CELLS COUNTED % (AUTO) 100 %; WHITE BLOOD COUNT 8.9 10^3/uL (4.0-10.5)
[2019-01-18 06:09] LABS: ALANINE AMINOTRANSFERASE 67 U/L (9-52); ALBUMIN 3.7 g/dL (3.5-5.0); ALKALINE PHOSPHATASE 75 U/L (38-126); ANION GAP 11 (5-19); ASPARTATE AMINO TRANSFERASE 50 U/L (14-36); BILIRUBIN,DIRECT 0.2 mg/dL (0.0-0.4); BILIRUBIN,TOTAL 0.3 mg/dL (0.2-1.3); BLOOD UREA NITROGEN 9 mg/dL (7-20); CALCIUM 9.8 mg/dL (8.4-10.2); CARBON DIOXIDE 27 mmol/L (22-30); CHLORIDE 104 mmol/L (98-107); GLUCOSE 104 mg/dL (75-110); POTASSIUM 3.6 mmol/L (3.6-5.0); TOTAL PROTEIN 6.3 g/dL (6.3-8.2)
[2019-01-18] MEDS ORDERED: (PENDING PHARMACY ID) (Mv-Min/Iron/Folic/Calcium/Vitk [Women's Multivitamin Tablet] 1 TAB) PO SCH (10:00)
[2019-01-18] MEDS ORDERED: CALCIUM CARBONATE 250 MG/VITAMIN D3 125 UNIT TABLET PO SCH (10:00)
[2019-01-18] MEDS ORDERED: MULTIVITAMIN TABLET PO SCH (10:00)
[2019-01-18] MEDS ORDERED: BIOTIN 5000 MCG PO SCH (10:00)
[2019-01-18] MEDS ORDERED: (PENDING PHARMACY ID) (Cholecalciferol (Vitamin D3) [Vitamin D3 2000 Unit Tablet] 2,000 UN PO SCH (10:00)
[2019-01-18] MEDS ORDERED: CHOLECALCIFEROL (D3) 1,000 UNIT TABLET PO SCH (10:00)
[2019-01-18] MEDS ORDERED: [UNRECOGNIZED DRUG - OTHER] PO SCH (10:00)
[2019-01-18] MEDS ORDERED: CALCIUM CARBONATE PO SCH (10:00)
[2019-01-18] MEDS ORDERED: FERROUS SULFATE 325 MG TABLET PO SCH (10:00)
[2019-01-18] MEDS ORDERED: VITAMIN D3 PO SCH (10:00)
[2019-01-18] MEDS: FLUTICASONE NASAL SPRAY 50 MCG/SPRY 120 SPRAY/16 GM NASL SCH (10:34)
[2019-01-18] MEDS: FAMOTIDINE 20 MG TABLET PO SCH (10:35)
[2019-01-18] MEDS: DOCUSATE SODIUM 100 MG CAPSULE PO SCH (10:35)
[2019-01-18] MEDS: BENZTROPINE MESYLATE 1 MG TABLET PO SCH (10:36)
[2019-01-18] MEDS: RISPERIDONE 1 MG TABLET PO SCH (10:36)
[2019-01-18] MEDS: LORATADINE 10 MG TABLET PO SCH (10:36)
[2019-01-18] MEDS: ENOXAPARIN SODIUM INJ 40 MG/0.4 ML DISP.SYRIN SUBCUT SCH (10:37)
[2019-01-18] MEDS: CEFTRIAXONE SODIUM 1,000 MG in DEXTROSE 5%-WATER 50 ML IV SCH (10:38)
[2019-01-18 15:55] VITALS: BP 148/86
--- NOTE | 2019-01-19 14:43 | PDOC DISCHARGE SUMMARY ---
General - Admit/Disc Date/PCP Admission Date/Primary Care Provider: 01/12/19 08:48 MARY SINGLETARY MD Discharge Date: 01/18/19 - Discharge Diagnosis (1) Bacteremia due to Streptococcus Is this a current diagnosis for this admission?: Yes Summary: 01/16: Lab called that blood culture came back positive for Streptococcus viridans 09/07. She did came in with leukocytosis and lactic acidosis with no exact definitive focus. Will repeat blood culture and will order a TTE to assess for vegetation. Continue Rocephin. 01/17/2019-blood cultures are positive for strep viridans. Repeat blood cultures from yesterday are pending. Patient has echocardiogram was done waiting for the report. Presently on IV Rocephin. Afebrile. T-max is 98.2. 01/18/2019-patient had echocardiogram was done which was negative for vegetation. Blood pressure initially is to strep very dense. Patient is discharged home Afebrile. Repeat cultures are negative. Because of the altered mental status lumbar puncture was done and CSF cultures also negative. (2) Acute encephalopathy Is this a current diagnosis for this admission?: Yes Summary: She appears more alert and responsive today. Likely from overdose of her antipsychotropics. She was empirically started on regimen for meningitis but initial CSF fluid analysis is unremarkable. Await CSF culture result. Will discontinue antimicrobials pending result. Psych consulted. 01/14: Discontinue vancomycin. Continue Rocephin until blood CS is finally resulted as it is growing GPC 09/07. 01/15: Patient is now oriented to person, place and month/year but is not able to recall what happened at home. Discussed with psych as well. Appears patient was found to be unsconscious in the bathroom at home and that patient received an unrecalled medication/injection prior to that at [facility]. Will request records from [facility]. Check orthostats and carotid doppler. 01/17/2019-patient is able to tell her date of able to tell me that she is in [facility]. Not in distress. Complaining of chest congestion. Echocardiogram was done waiting for the report. Altered mental status may be secondary to overdose with antipsychotic. LP was done during the hospital stay which was negative. Presently on IV Rocephin for strep viridans. 01/18/2019-patient is comfortably in the bed communicating okay. She was admitted with after taking multiple antipsychotic medications. Psych consult was done during the hospital stay. Cultures are negative. Echocardiogram negative for vegetation. Initial blood culture was positive for strep viridans follow blood cultures are negative. Patient is going home without antibiotics. Doppler was also negative for stenosis. (3) Depression and bipolar disorder Is this a current diagnosis for this admission?: Yes Summary: Psych home meds resumed. 01/17/2019-patient denies any anxiety depression. Presently on benztropine 1 mg p.o. twice daily, lithium 450 mg every 12 hours, Risperdal 1 mg p.o. twice a day. [place] level on 01/12/2019 is 1.2. 01/18/2019-patient is comfortably in the bed no signs of any anxiety depression. Patient is advised to continue her home medications upon discharge. [place] level in the hospital came back 1.2 within therapeutic range. pt is strongly advised to follow-up with psychiatrist in 3 to 5 days. (4) Elevated lactic acid level Is this a current diagnosis for this admission?: Yes Summary: 01/18/2019-patient initially came in with elevated lactic acid levels repeat lactic acid levels came back normal. (5) Hypokalemia Is this a current diagnosis for this admission?: Yes Summary: Replace with 40 meqs PO. 01/15: Still low after replacement. Replace with both PO and IV today. 01/16: Improved. 01/17/2019-latest potassium level is 3.5 today. To continue potassium 40 mg p.o. daily. 01/18/2019-serum potassium is 3.6 today on p.o. potassium 40 mg daily hypokalemia resolved. (6) Rhabdomyolysis Is this a current diagnosis for this admission?: Yes Summary: 01/18/2019-patient came in with elevated CPK levels most likely secondary to fall. (7) Leukocytosis Is this a current diagnosis for this admission?: Yes - Additional Information Resuscitation Status: Full Code Discharge Diet: Cardiac Discharge Activity: Activity As Tolerated Prescriptions: Fluticasone Propionate [Flonase Nasal [place] 50 Mcg/[place] 16 gm] 1 spray NASL Q12 #1 spray.pump Home Medications: Benztropine Mesylate [Cogentin 1 mg Tablet] 1 mg PO BID 01/12/19 Biotin 5,000 mcg PO DAILY 01/12/19 Calcium Carbonate/Vitamin D3 [Calcium 600-Vit D3 500 Softgel] 2 cap PO DAILY 01/12/19 Cholecalciferol (Vitamin D3) [Vitamin D3 2000 unit Tablet] 2,000 unit PO DAILY 01/12/19 Ferrous Sulfate [Feosol 325 mg Tablet] 325 mg PO DAILY 01/12/19 Hydroxyzine Pamoate [Vistaril 50 mg Capsule] 50 mg PO Q8 01/12/19 [place] Carbonate [[place] Carbonate ER] 300 mg PO QAM 01/12/19 [place] Carbonate [[place] Carbonate ER] 600 mg PO QPM 01/12/19 Loratadine [Claritin 10 mg Tablet] 10 mg PO DAILYP PRN 01/12/19 Melatonin 10 mg PO QHS 01/12/19 Meloxicam [Mobic] 15 mg PO DAILY 01/12/19 Mv-Min/Iron/Folic/Calcium/Vitk [Women's Multivitamin Tablet] 1 tab PO DAILY 01/12/19 Omeprazole 40 mg PO [id number] 01/12/19 Perphenazine 2 mg PO QHS 01/12/19 Risperidone [Risperdal] 1 mg PO BID 01/12/19 Fluticasone Propionate [Flonase Nasal [place] 50 Mcg/[place] 16 gm] 1 spray NASL Q12 #1 spray.pump 01/16/19 History of Present Illness History of Present Illness: KYLER INFANTE is a 58 year old female 58 year old female patient with psychiatric disorder and taking multiple antipsychotic medications including Risperdal, perphenazine and lithium brought by EMS for altered mental status and fall. Patient is oriented to self only. Due to her cognitive impairment, patient is not able to give any meaningful history. Brief history is obtained from ER attending note. Per ER attending note, patient has been on multiple psychiatric medication presented with fall. Is unclear when she was found down of the fall was witnessed, EMS is not here to give a report. Apparently she told her family she might have taken too many psych medications. When I see the patient patient is awake alert. She is disheveled and unkempt. She has several lacerations and cuts on her forehead and she has also erythema on her neck. Her CT scan is negative for acute for acute intracranial process. Her blood work shows WBC of 26,000 lactic acid of 3.8. Her lithium level is pending. Patient has low-grade fever, altered mental status and leukocytosis so I think it is appropriate to do lumbar puncture to rule out meningitis. In the meantime patient has been started on ceftriaxone and vancomycin. Hospital Course Hospital Course: 01/18/20199994-35-lgic-old female with multiple medical problems admitted with acute delirium and elevated CPK levels and elevated lactic acid levels work-up was negative. Initially one set of blood cultures came back positive for strep radians echocardiogram was done which was negative for vegetation. Patient was treated with IV Rocephin during the hospital stay. She is mental status is back to baseline. Psych consult was done during the hospital stay. Physical Exam Vital Signs: Temp Pulse Resp BP Pulse Ox 97.6 F 92 12 148/86 H 96 01/18/19 15:52 01/18/19 15:52 01/18/19 15:52 01/18/19 15:52 01/18/19 15:52 Intake & Output 01/18/19 01/19/19 01/20/19 06:59 06:59 06:59 Intake Total 1375 705 Balance 1375 705 Weight 72.2 kg General appearance: PRESENT: no acute distress Head exam: PRESENT: atraumatic Eye exam: PRESENT: PERRLA Teeth exam: PRESENT: poor dentation Neck exam: ABSENT: carotid bruit, JVD, lymphadenopathy, thyromegaly Respiratory exam: PRESENT: decreased breath sounds Cardiovascular exam: PRESENT: RRR. ABSENT: diastolic murmur, rubs, systolic murmur GI/Abdominal exam: PRESENT: normal bowel sounds, soft. ABSENT: distended, guarding, mass, organolmegaly, rebound, tenderness Rectal exam: PRESENT: deferred Extremities exam: PRESENT: full ROM. ABSENT: calf tenderness, clubbing, pedal edema Neurological exam: PRESENT: alert, awake, oriented to person, oriented to place, oriented to time, oriented to situation, CN II-XII grossly intact. ABSENT: motor sensory deficit Psychiatric exam: PRESENT: appropriate affect, normal mood. ABSENT: homicidal ideation, suicidal ideation Results Laboratory Results: 01/18/19 05:11 01/18/19 05:11 01/12/19 01/14/19 01/15/19 06:50 05:43 07:29 Creatine Kinase 554 H 1443 H 1309 H 01/16/19 01/17/19 05:31 04:09 Creatine Kinase 867 H 351 H Impressions: Guidance Fluoroscopy 01/12/19 00:00 IMPRESSION: Lumbar puncture under fluoroscopy. No immediate complication. Cervical Spine CT 01/12/19 06:37 IMPRESSION: No acute fracture or subluxation of the cervical spine. TECHNICAL DOCUMENTATION: Quality ID # 436: Final reports with documentation of one or more dose reduction techniques (e.g., Automated exposure control, adjustment of the mA and/or kV according to patient size, use of iterative reconstruction technique) copyright 2011 [employer]- All Rights Reserved Head CT 01/12/19 06:37 IMPRESSION: No acute intracranial findings. Chest X-Ray 01/12/19 08:29 IMPRESSION: NO ACUTE RADIOGRAPHIC FINDING IN THE CHEST. Lumbar Puncture 01/12/19 08:46 IMPRESSION: Lumbar puncture under fluoroscopy. No immediate complication. Carotid Doppler Study 01/16/19 00:00 IMPRESSION: NO HEMODYNAMICALLY SIGNIFICANT STENOSIS. Qualifiers - * PATIENT BEING DISCHARGED WITH ANY OF THE FOLLOWING DIAGNOSIS: No VTE patient discharged on overlapping Therapy?: No Acute Heart Failure Is this a Heart Failure Patient?: No Plan Discharge Plan: Patient is discharged home. Time Spent: Greater than 30 Minutes
== END 2019-01-18 16:15 | disposition home or self-care (01) | DRG 917 ==
LOC: ER 06:29 → EH 08:48 → 3W 15:39
PROVIDERS: ADMIT Internal Medicine; ATTEND Internal Medicine
PROC: 009U3ZX Drainage of Spinal Canal, Percutaneous Approach, Diagnostic (ICD-10-PCS; principal; 2019-01-12)
PROC: B01B1ZZ Fluoroscopy of Spinal Cord using Low Osmolar Contrast (ICD-10-PCS; 2019-01-12)
DX: T43.91XA Poisoning by unspecified psychotropic drug, accidental (unintentional), initial encounter (principal); G92 Toxic encephalopathy; R78.81 Bacteremia; B95.0 Streptococcus, group A, as the cause of diseases classified elsewhere; E87.6 Hypokalemia; T79.6XXA Traumatic ischemia of muscle, initial encounter; W19.XXXA Unspecified fall, initial encounter; S01.81XA Laceration without foreign body of other part of head, initial encounter; K21.9 Gastro-esophageal reflux disease without esophagitis; F31.9 Bipolar disorder, unspecified; E66.9 Obesity, unspecified; F42.9 Obsessive-compulsive disorder, unspecified; F20.9 Schizophrenia, unspecified; Y92.9 Unspecified place or not applicable; Z79.899 Other long term (current) drug therapy; Z90.710 Acquired absence of both cervix and uterus
CPT/HCPCS: 36415; 62270; 70450; 71045; 72125; 77003; 80048; 80053; 80178; 80202; 81001; 82550; 82803; 82945; 82962; 83605; 83735; 84157; 84443; 85025; 85610; 87040; 87070; 87077; 87086; 87186; 87205; 87493; 89050; 93005; 93010; 93306; 93880; 96365; 99291; J0133; J0696; J1650; J2060; J3370; J3475; J3480; J3490; J7030; J7060; J7120

== ENCOUNTER → 2019-05-18 | Outpatient (CLI) | payer MEDICARE ==
[2019-05-18 10:25] LABS: ABSOLUTE BASOPHILS # (AUTO) 0.1 10^3/uL (0.0-0.2); ABSOLUTE EOSINOPHILS # (AUTO) 0.3 10^3/uL (0.0-0.6); ABSOLUTE LYMPHOCYTES (AUTO) 2.2 10^3/uL (0.5-4.7); ABSOLUTE MONOCYTES (AUTO) 0.6 10^3/uL (0.1-1.4); BASOPHILS % (AUTO) 0.9 % (0-2); EOSINOPHILS % (AUTO) 2.6 % (0-6); HEMATOCRIT 36.7 % (36.0-47.0); HEMOGLOBIN 12.3 g/dL (12.0-15.5); LYMPHOCYTES % (AUTO) 21.5 % (13-45); MEAN CORPUSCULAR HEMOGLOBIN 27.7 pg (27.0-33.4); MEAN CORPUSCULAR HGB CONC 33.6 g/dL (32.0-36.0); MEAN CORPUSCULAR VOLUME 82 fl (80-97); PLATELET COUNT 254 10^3/uL (150-450); RED BLOOD COUNT 4.46 10^6/uL (3.72-5.28); RED CELL DISTRIBUTION WIDTH 14.5 % (11.5-14.0); TOTAL CELLS COUNTED % (AUTO) 100 %; WHITE BLOOD COUNT 10.1 10^3/uL (4.0-10.5)
[2019-05-18 10:51] LABS: ALBUMIN 4.6 g/dL (3.5-5.0); ALKALINE PHOSPHATASE 96 U/L (38-126); ANION GAP 11 (5-19); ASPARTATE AMINO TRANSFERASE 47 U/L (14-36); BILIRUBIN,DIRECT 0.1 mg/dL (0.0-0.4); BILIRUBIN,TOTAL 0.3 mg/dL (0.2-1.3); BLOOD UREA NITROGEN 9 mg/dL (7-20); CALCIUM 10.3 mg/dL (8.4-10.2); CARBON DIOXIDE 27 mmol/L (22-30); CHLORIDE 103 mmol/L (98-107); CHOLESTEROL 215.17 mg/dL (0-200); GLUCOSE 105 mg/dL (75-110); LITHIUM 1.1 mEq/L (0.6-1.2); POTASSIUM 4.3 mmol/L (3.6-5.0); TOTAL PROTEIN 7.5 g/dL (6.3-8.2); TRIGLYCERIDES 310 mg/dL (<150)
[2019-05-18 11:02] LABS: DIRECT LDL 146 mg/dL (<100)
[2019-05-18 11:04] LABS: FREE T4 (FREE THYROXINE) 0.82 ng/dL (0.78-2.19)
[2019-05-18 11:18] LABS: THYROID STIMULATING HORMONE 2.3 uIU/mL (0.47-4.68)
== END ==
LOC: OD 09:24
PROVIDERS: ATTEND Nurse Practitioner Psychiatric/Mental Health
DX: F31.2 Bipolar disorder, current episode manic severe with psychotic features (principal)
CPT/HCPCS: 36415; 80053; 80061; 80178; 84439; 84443; 85025

== ENCOUNTER → 2019-10-24 | Outpatient (CLI) | payer MEDICARE ==
[2019-10-24 08:46] LABS: ABSOLUTE BASOPHILS # (AUTO) 0.2 10^3/uL (0.0-0.2); ABSOLUTE EOSINOPHILS # (AUTO) 0.1 10^3/uL (0.0-0.6); ABSOLUTE LYMPHOCYTES (AUTO) 1.1 10^3/uL (0.5-4.7); ABSOLUTE MONOCYTES (AUTO) 0.6 10^3/uL (0.1-1.4); ABSOLUTE NEUT (AUTO) 9.5 10^3/uL (1.7-8.2); BASOPHILS % (AUTO) 1.3 % (0-2); EOSINOPHILS % (AUTO) 0.7 % (0-6); HEMATOCRIT 36.7 % (36.0-47.0); HEMOGLOBIN 12.5 g/dL (12.0-15.5); LYMPHOCYTES % (AUTO) 9.8 % (13-45); MEAN CORPUSCULAR HGB CONC 34.1 g/dL (32.0-36.0); MEAN CORPUSCULAR VOLUME 82 fl (80-97); MONOCYTES % (AUTO) 5.1 % (3-13); PLATELET COUNT 295 10^3/uL (150-450); RED BLOOD COUNT 4.46 10^6/uL (3.72-5.28); RED CELL DISTRIBUTION WIDTH 13.7 % (11.5-14.0); SEGMENTED NEUTROPHILS % (AUTO) 83.1 % (42-78); TOTAL CELLS COUNTED % (AUTO) 100 %; WHITE BLOOD COUNT 11.4 10^3/uL (4.0-10.5)
[2019-10-24 09:04] LABS: ALBUMIN 4.4 g/dL (3.5-5.0); ALKALINE PHOSPHATASE 110 U/L (38-126); ANION GAP 10 (5-19); ASPARTATE AMINO TRANSFERASE 47 U/L (14-36); BILIRUBIN,DIRECT 0.1 mg/dL (0.0-0.4); BILIRUBIN,TOTAL 0.4 mg/dL (0.2-1.3); BLOOD UREA NITROGEN 8 mg/dL (7-20); CARBON DIOXIDE 24 mmol/L (22-30); CHLORIDE 105 mmol/L (98-107); GLUCOSE 133 mg/dL (75-110); LITHIUM 0.9 mEq/L (0.6-1.2); POTASSIUM 3.4 mmol/L (3.6-5.0); TOTAL PROTEIN 7.3 g/dL (6.3-8.2)
[2019-10-24 09:16] LABS: FREE T4 (FREE THYROXINE) 1.23 ng/dL (0.78-2.19)
[2019-10-24 09:30] LABS: THYROID STIMULATING HORMONE 1.83 uIU/mL (0.47-4.68)
== END ==
LOC: OD 07:18
PROVIDERS: ATTEND Nurse Practitioner Psychiatric/Mental Health
DX: F31.2 Bipolar disorder, current episode manic severe with psychotic features (principal); Z79.899 Other long term (current) drug therapy
CPT/HCPCS: 36415; 80053; 80178; 84439; 84443; 85025

== ENCOUNTER → 2020-04-12 | Outpatient (CLI) | payer MEDICARE | LOC: OD 08:35 | PROVIDERS: ATTEND Nurse Practitioner Psychiatric/Mental Health | DX: F31.2 Bipolar disorder, current episode manic severe with psychotic features (principal); Z79.899 Other long term (current) drug therapy | CPT/HCPCS: 36415; 80178; 82565; 84520 ==

== ENCOUNTER 2020-07-13 15:21 | Inpatient (IN) | payer MEDICARE ==
--- NOTE | 2020-07-13 15:50 | ER Document Report ---
ED Medical Screen (RME) - General Chief Complaint: Altered Mental Status Stated Complaint: NOT EATING/DRINKING/ALTERED Time Seen by Provider: 07/13/20 15:35 Primary Care Provider: WAI ARGUETA NP [Primary Care Provider] - Follow up as needed Mode of Arrival: Wheelchair Information source: Outside Facility Records Notes: Patient is a 59-year-old female presenting with altered mental status as well as not eating or drinking for at least the last 24 hours. Patient is a patient at [facility] at this time. Patient appears to be catatonic, she is not answering any questions just staring at me. The caregiver with her does not know any information about the patient. Upon reviewing patient's [facility] records it appears the patient has an elevated white blood count and elevated creatinine. She is on lithium. I have greeted and performed a rapid initial assessment of this patient. A comprehensive ED assessment and evaluation of the patient, analysis of test results and completion of the medical decision making process will be conducted by additional ED providers. I have specifically instructed the patient or family members with the patient to immediately return to any nursing staff should anything change in the patient's condition or with their chief complaint. TRAVEL OUTSIDE OF THE [place] IN LAST 30 DAYS: No - Related Data Allergies/Adverse Reactions: No Known Allergies Allergy (Verified 08/12/18 19:03) Past Medical History - Past Medical History Cardiac Medical History: Endocrine Medical History: Renal/ Medical History: Denies: Hx Peritoneal Dialysis GI Medical History: Reports: Hx Gastroesophageal Reflux Disease Psychiatric Medical History: Reports: Hx Bipolar Disorder, Hx Depression, Hx Obsessive Compulsive Disorder, Hx Schizophrenia Past Surgical History: Reports: Hx Hysterectomy - Immunizations Hx Diphtheria, Pertussis, Tetanus Vaccination: Yes Physical Exam - Vital signs Vitals: Temp Pulse Resp BP Pulse Ox 98.8 F 98 24 H 140/60 H 97 07/13/20 15:26 07/13/20 15:26 07/13/20 15:26 07/13/20 15:26 07/13/20 15:26 Course - Vital Signs Vital signs: Temp Pulse Resp BP Pulse Ox 98.8 F 98 24 H 140/60 H 97 07/13/20 15:26 07/13/20 15:26 07/13/20 15:26 07/13/20 15:26 07/13/20 15:26 Doctor's Discharge - Discharge Referrals: WAI ARGUETA NP [Primary Care Provider] - Follow up as needed
--- NOTE | 2020-07-13 16:11 | RADIOLOGY REPORT (SQ) ---
EXAM DESCRIPTION: CHEST SINGLE VIEW IMAGES COMPLETED DATE/TIME: 07/13/2020 3:56 pm REASON FOR STUDY: Altered mental status/diaphoresis COMPARISON: Chest x-ray 01/12/2019, 01/03/2016. EXAM PARAMETERS: NUMBER OF VIEWS: One view. TECHNIQUE: Single frontal radiographic view of the chest acquired. RADIATION DOSE: NA LIMITATIONS: Patient positioning. FINDINGS: LUNGS AND PLEURA: The patient is rotated and in a kyphotic position. Subsegmental atelect asis noted at the bilateral lung bases. No consolidation, pneumothorax or pleural effusion. MEDIASTINUM AND HILAR STRUCTURES: No masses. Contour normal. HEART AND VASCULAR STRUCTURES: Heart normal in size. Normal vasculature. BONES: No acute findings. HARDWARE: None in the chest. IMPRESSION: Subsegmental atelectasis at the bilateral lung bases. No consolidation or pleural effus ion. TECHNICAL DOCUMENTATION: JOB ID: [id number] 2010 [employer]- All Rights Reserved Reading location - IP/workstation name: [email or web address]
[2020-07-13 16:34] LABS: ABSOLUTE BASOPHILS # (AUTO) 0.1 10^3/uL (0.0-0.2); ABSOLUTE MONOCYTES (AUTO) 0.8 10^3/uL (0.1-1.4); ABSOLUTE NEUT (AUTO) 14.8 10^3/uL (1.7-8.2); BASOPHILS % (AUTO) 0.7 % (0-2); HEMATOCRIT 37.5 % (36.0-47.0); HEMOGLOBIN 12.9 g/dL (12.0-15.5); LYMPHOCYTES % (AUTO) 6.2 % (13-45); MEAN CORPUSCULAR HEMOGLOBIN 29.8 pg (27.0-33.4); MEAN CORPUSCULAR HGB CONC 34.3 g/dL (32.0-36.0); MEAN CORPUSCULAR VOLUME 87 fl (80-97); PLATELET COUNT 288 10^3/uL (150-450); RED BLOOD COUNT 4.32 10^6/uL (3.72-5.28); RED CELL DISTRIBUTION WIDTH 13.9 % (11.5-14.0); SEGMENTED NEUTROPHILS % (AUTO) 88.1 % (42-78); TOTAL CELLS COUNTED % (AUTO) 100 %; WHITE BLOOD COUNT 16.8 10^3/uL (4.0-10.5)
[2020-07-13 16:55] LABS: ALBUMIN 5.1 g/dL (3.5-5.0); ALKALINE PHOSPHATASE 192 U/L (38-126); ANION GAP 19 (5-19); ASPARTATE AMINO TRANSFERASE 78 U/L (14-36); BILIRUBIN,DIRECT 0.3 mg/dL (0.0-0.4); BILIRUBIN,TOTAL 0.6 mg/dL (0.2-1.3); BLOOD UREA NITROGEN 43 mg/dL (7-20); CALCIUM 10.9 mg/dL (8.4-10.2); CARBON DIOXIDE 18 mmol/L (22-30); CHLORIDE 103 mmol/L (98-107); GLUCOSE 173 mg/dL (75-110); POTASSIUM 3.4 mmol/L (3.6-5.0); TOTAL PROTEIN 8.2 g/dL (6.3-8.2)
[2020-07-13 17:00] LABS: LITHIUM 2.9 mEq/L (0.6-1.2)
--- NOTE | 2020-07-13 17:10 | ER Document Report ---
ED General - General Chief Complaint: Altered Mental Status Stated Complaint: NOT EATING/DRINKING/ALTERED Time Seen by Provider: 07/13/20 15:35 Primary Care Provider: WAI ARGUETA NP [Primary Care Provider] - Follow up as needed Mode of Arrival: Wheelchair TRAVEL OUTSIDE OF THE [place] IN LAST 30 DAYS: No - HPI Notes: 59-year-old female presents from [facility] for altered mental status. Information is pretty much obtained from prehospital report. There is an employee at bedside who states that she does not know much and "I was just told you have a transport today". She has not been eating or drinking, has decreased communication, was reportedly diaphoretic and shaking today. She takes lithium. Labs have been drawn which had showed an elevated creatinine and white blood cell count. The employee from the facility states that she has spoken a few words in the time that they have been together today. - Related Data Allergies/Adverse Reactions: No Known Allergies Allergy (Verified 08/12/18 19:03) Past Medical History - General Information source: Outside Facility Records Cannot obtain history due to: Altered mental status - Social History Smoking Status: Unknown if Ever Smoked Frequency of alcohol use: None Drug Abuse: None Family History: Reviewed & Not Pertinent Patient has homicidal ideation: No - Past Medical History Cardiac Medical History: Endocrine Medical History: Renal/ Medical History: Denies: Hx Peritoneal Dialysis GI Medical History: Reports: Hx Gastroesophageal Reflux Disease Psychiatric Medical History: Reports: Hx Bipolar Disorder, Hx Depression, Hx Obsessive Compulsive Disorder, Hx Schizophrenia Past Surgical History: Reports: Hx Hysterectomy - Immunizations Hx Diphtheria, Pertussis, Tetanus Vaccination: Yes Review of Systems - Review of Systems -: Yes ROS unobtainable due to patient's medical condition Physical Exam - Vital signs Vitals: Pulse Resp BP Pulse Ox 90 27 H 105/84 98 07/13/20 15:22 07/13/20 15:22 07/13/20 15:22 07/13/20 15:22 - General General appearance: Alert - HEENT Head: Normocephalic, Atraumatic Eyes: No: Scleral icterus Extraocular movements intact: Yes Pupils: PERRL Mucous membranes: Dry - Respiratory Breath sounds: Normal - Cardiovascular Rhythm: Regular Heart sounds: Normal auscultation - Abdominal Distension: No distension Tenderness: Nontender - Extremities General lower extremity: No: Edema - Neurological Notes: Patient is alert and will make eye contact. She was able to follow command to squeeze my hand, however was not able to show 2 fingers. She mumbles incoherently in response to questions. She does spontaneously move all of her extremities. +clonus lower extremities - Psychological Associated symptoms: Other - Unable to assess - Skin Skin Temperature: Warm Course - Re-evaluation Re-evalutation: 59-year-old female arrives from [facility] for altered mental status, no p.o. intake and decreased communication from her baseline. On exam patient is alert, she will make eye contact and track about the room, she mumbles incoherently and will intermittently follow commands, she does move all extremities spontaneously, positive clonus. She is on lithium. She had a laboratory evaluation prior to evaluation which is significant for a supratherapeutic lithium level at 2.9. Have ordered 2 L normal saline to start clearance. Have also ordered Gil for critical I/O. Has altered mental status though she is protecting her airway. Given that she is at a facility, I would suspect that her lithium toxicity is likely chronic in nature Additional labs reviewed. Leukocytosis present, unclear if infectious source is present, possible reactionary. No acute anemia. Sodium within normal limits. Potassium mildly low, will receive IV replacement. Bicarb low, acute renal injury with creatinine 3.47 and BUN 43 Have added on thyroid studies, Mg/Phos, ABG, osmolality and urine studies EKG review, her QTC is prolonged, have ordered 1 amp of bicarb and 2 g magnesium bolus 07/13/20 19:22 Into check on patient, she does seem somewhat more alert, she is sitting up in bed, still mostly mumbles. Having good urinary output 07/13/20 20:10 ABG with a mixed picture, normal pH with metabolic acidosis and respiratory alkalosis, ?venous sample FeNa indicating prerenal Mild elevated mag, Phos okay, thyroid studies within normal limits Calculated osmolality 305, measured 303, no osm gap 07/13/20 22:16 Nursing reports that patient has been trying to get out of bed and they are having a hard time redirecting her, have ordered a small dose of Ativan to help 07/13/20 22:37 [place] has down trended Creatinine has improved, no longer has anion gap though bicarb is still mild low and has elevated chloride so might not be correctly assessing metabolic status. Hypokalemia reversed Given her improvements in response to treatment and continued good urinary output, do not think that patient would need dialysis at this time 07/13/20 23:42 Patient has been seen by the hospitalist for admission, however would like to reassess her after she metabolizes her Ativan to get a true assessment of her mental status, admission pending this 07/14/20 01:36 Into check on patient, she is sleeping. Continues to have good urinary output 07/14/20 02:07 Patient has been reassessed by hospitalist, at this point has asked ICU to evaluate given her mental status. Discussed with ICU team will come evaluate. I did review previous notes, and 2019's documented that patient is only ever oriented to self and has cognitive impairment, so question if this is actually patient's baseline that we have seen today. Patient to be turned over, pending ICU evaluation - Vital Signs Vital signs: Temp Pulse Resp BP Pulse Ox 98.9 F 98 24 H 109/67 96 07/14/20 00:01 07/13/20 15:26 07/14/20 00:01 07/14/20 00:01 07/14/20 00:01 - Laboratory Result Diagrams: 07/13/20 16:24 07/13/20 21:50 Laboratory results interpreted by me: 07/13/20 07/13/20 07/13/20 16:24 16:24 16:24 WBC 16.8 H Lymph % (Auto) 6.2 L Absolute Neuts (auto) 14.8 H Seg Neutrophils % 88.1 H Carbonic Acid ABG pCO2 ABG pO2 ABG HCO3 ABG Total CO2 ABG O2 Saturation Potassium 3.4 L Chloride Carbon Dioxide 18 L BUN 43 H Creatinine 3.47 H Est GFR ( Amer) 16 L Est GFR (MDRD) Non-Af 14 L Glucose 173 H Serum Osmolality 303 H Calcium 10.9 H Magnesium AST 78 H ALT 114 H Alkaline Phosphatase 192 H Albumin 5.1 H Urine Protein Urine Ketones Urine Creatinine Urine Sodium [place] 2.9 H* 07/13/20 07/13/20 07/13/20 16:24 16:58 16:58 WBC Lymph % (Auto) Absolute Neuts (auto) Seg Neutrophils % Carbonic Acid ABG pCO2 ABG pO2 ABG HCO3 ABG Total CO2 ABG O2 Saturation Potassium Chloride Carbon Dioxide BUN Creatinine Est GFR ( Amer) Est GFR (MDRD) Non-Af Glucose Serum Osmolality Calcium Magnesium 2.4 H AST ALT Alkaline Phosphatase Albumin Urine Protein 100 H Urine Ketones TRACE H Urine Creatinine 443.3 H Urine Sodium 16 L [place] 07/13/20 07/13/20 17:47 21:50 WBC Lymph % (Auto) Absolute Neuts (auto) Seg Neutrophils % Carbonic Acid 0.88 L ABG pCO2 29.2 L ABG pO2 64.8 L ABG HCO3 18.6 L ABG Total CO2 19.5 L ABG O2 Saturation 93.4 L Potassium Chloride 111 H Carbon Dioxide 18 L BUN 38 H Creatinine 2.27 H Est GFR ( Amer) 27 L Est GFR (MDRD) Non-Af 22 L Glucose 127 H Serum Osmolality Calcium Magnesium AST ALT Alkaline Phosphatase Albumin Urine Protein Urine Ketones Urine Creatinine Urine Sodium [place] 2.6 H* - Diagnostic Test Radiology reviewed: Image reviewed, Reports reviewed - EKG Interpretation by Me Additional EKG results interpreted by me: EKG as interpreted by me. Sinus rhythm, rate 87. Slightly widened QRS, marked prolonged QTc 539. No ST segment elevation 07/13/20 21:36 Repeat EKG obtained. Sinus rhythm, rate 87, some improvement in the QRS. There has additionally been improvement in QTc, now 506. No ST segment elevation/depression Discharge - Discharge Clinical Impression: NALDO (acute kidney injury), Encephalopathy, Metabolic acidosis [place] toxicity Qualifiers: Encounter type: initial encounter Injury intent: accidental or unintentional Qualified Code(s): T56.891A - Toxic effect of other metals, accidental (unintentional), initial encounter Disposition: ADMITTED INPATIENT Referrals: WAI ARGUETA NP [Primary Care Provider] - Follow up as needed
[2020-07-13] MEDS ORDERED: NORMAL SALINE 1000 ML 1,000 ML IV ONE ×3 (17:12→21:01)
[2020-07-13 17:33] LABS: APPEARANCE,URINE CLOUDY; BILIRUBIN,URINE NEGATIVE (NEGATIVE); COLOR,URINE AMBER; GLUCOSE, URINE NEGATIVE (NEGATIVE); KETONES,URINE TRACE mg/dL (NEGATIVE); LEUKOCYTE ESTERASE,URINE NEGATIVE (NEGATIVE); NITRITE,URINE NEGATIVE (NEGATIVE); PROTEIN,URINE 100 mg/dL (NEGATIVE); URINE SPECIFIC GRAVITY 1.019; UROBILINOGEN,URINE NEGATIVE mg/dL (<2.0)
[2020-07-13] MEDS ORDERED: SODIUM BICARBONATE 8.4% INJ 50 MEQ/50 ML DISP.SYRIN IV ONE (17:35)
[2020-07-13] MEDS ORDERED: MAGNESIUM SULFATE/D5W 1 GM/100 ML RTUPB IV ONE (17:40)
[2020-07-13 17:53] LABS: PHOSPHORUS 4.4 mg/dL (2.5-4.5)
[2020-07-13 18:07] LABS: FREE T4 (FREE THYROXINE) 1.05 ng/dL (0.78-2.19)
[2020-07-13 18:17] LABS: ARTERIAL BLOOD BASE EXCESS -4.7 mmol/L; ARTERIAL BLOOD FIO2 ROOM AIR; ARTERIAL BLOOD H2CO3 0.88 mmol/L (1.05-1.35); ARTERIAL BLOOD HCO3 18.6 mmol/L (20-24); ARTERIAL BLOOD O2 SATURATION 93.4 % (94-98); ARTERIAL BLOOD PCO2 29.2 mmHg (35-45); ARTERIAL BLOOD PH 7.42 (7.35-7.45); ARTERIAL BLOOD PO2 64.8 mmHg (80-100); ARTERIAL BLOOD TOTAL CO2 19.5 mmol/L (21-25)
[2020-07-13 18:21] LABS: THYROID STIMULATING HORMONE 2.11 uIU/mL (0.47-4.68)
[2020-07-13] MEDS: POTASSI CL 20 MEQ/50 ML RIDER 20 MEQ/50 ML RTUPB IV SCH ×2 (18:24→20:26)
--- NOTE | 2020-07-13 18:29 | RADIOLOGY REPORT (SQ) ---
EXAM DESCRIPTION: CHEST SINGLE VIEW IMAGES COMPLETED DATE/TIME: 07/13/2020 5:44 pm REASON FOR STUDY: EVAL CONSOLIDATION COMPARISON: Chest x-ray 07/13/2020 at 15:49 hours EXAM PARAMETERS: NUMBER OF VIEWS: One view. TECHNIQUE: Single frontal radiographic view of the chest acquired on 07/13/2020 at 17:34 hours. RADIATION DOSE: NA LIMITATIONS: None. FINDINGS: LUNGS AND PLEURA: No consolidation, pneumothorax or pleural effusion. MEDIASTINUM AND HILAR STRUCTURES: No masses. Contour normal. HEART AND VASCULAR STRUCTURES: Heart normal in size. Normal vasculature. BONES: No acute findings. HARDWARE: None in the chest. IMPRESSION: No acute radiographic finding in the chest. TECHNICAL DOCUMENTATION: JOB ID: [id number] 2010 [employer]- All Rights Reserved Reading location - IP/workstation name: [email or web address]
[2020-07-13 18:32] LABS: URINE CREATININE 443.3 mg/dL (15-278)
[2020-07-13] MEDS ORDERED: LORAZEPAM INJ 2 MG/1 ML VIAL IV ONE (22:10)
[2020-07-13 22:23] LABS: ANION GAP 11 (5-19); BLOOD UREA NITROGEN 38 mg/dL (7-20); CALCIUM 8.8 mg/dL (8.4-10.2); CARBON DIOXIDE 18 mmol/L (22-30); CHLORIDE 111 mmol/L (98-107); GLUCOSE 127 mg/dL (75-110); POTASSIUM 4.1 mmol/L (3.6-5.0)
[2020-07-13 22:26] LABS: LITHIUM 2.6 mEq/L (0.6-1.2)
--- NOTE | 2020-07-13 23:45 | RADIOLOGY REPORT (SQ) ---
INDICATION: altered mental status. COMPARISON: January 12, 2019 CORRELATION: None TECHNIQUE: Noncontrast spiral axial CT images were obtained from the skull base to vertex. This exam was performed according to our departmental dose-optimization program, which includes automated exposure control, adjustment of the mA and/or kV according to patient size and/or use of iterative reconstruction techniques. FINDINGS: There is no evidence of acute intracranial hemorrhage, midline shift, mass effect or mass lesion. Arreola-white differentiation is normal. There is no evidence of acute large territory infarct. Ventricles and extracerebral spaces are within normal limits, for age. The visualized paranasal sinuses demonstrate retention cyst right maxillary sinus. The orbits and eyeballs are unremarkable. The mastoid air cells are clear. Skull base and calvarium appear intact. IMPRESSION: No acute intracranial process is identified. The cause of the patient's mental status change is not identified on this examination.
[2020-07-14] MEDS ORDERED: NORMAL SALINE 1000 ML 1,000 ML IV ONE (01:34)
[2020-07-14] MEDS ORDERED: ONDANSETRON HCL INJ/PF 4 MG/2 ML SDV IV PRN (04:47)
--- NOTE | 2020-07-14 05:58 | PDOC H&P ---
History of Present Illness Admission Date/PCP: WAI ARGUETA NP Patient complains of: Altered mental status History of Present Illness: KYLER INFANTE is a 59 year old female with psychotic disorder who is on multiple antipsychotics including lithium presents from [facility] for altered mental status. Due to alteration in her mental status she is unable to give history and employee who accompanied her does not know much about her baseline. A brief history was obtained from ER attending and chart review. Per ER attending, She has not been eating or drinking for the past few days, has decreased communication, was reportedly diaphoretic and shaking today. She takes lithium and her lithium level was found to be elevated at 2.9 while at the ER and she wa s started on aggressive IV hydration. During my initial evaluation patient was given Ativan IV prior to undergoing CT head and unsure of whether she was under the influence of benzo or altered due to intoxication, decided to reevaluate after the effect of benzo we are sent out. She was reevaluated again 2 hours after she was given lorazepam but she was still was very lethargic, falling asleep immediately after awaking her with tactile stimuli. I recommended potential ICU admission for closer monitoring. In the meantime she was continued on IV hydration and she was evaluated by ICU team. While at the ER, her mental status started to improve and she was more awake but still nonverbal. I reevaluated her again for the third time and she looked awake and much improved from the previous 2 evaluations and decided to attempt her to IMCU for continuous monitoring and IV hydration. Past Medical History Cardiac Medical History: Endocrine Medical History: GI Medical History: Reports: Gastroesophageal Reflux Disease Psychiatric Medical History: Reports: Bipolar Disorder, Depression Past Surgical History Past Surgical History: Reports: Hysterectomy Social History Smoking Status: Unknown if Ever Smoked Frequency of Alcohol Use: None Hx Recreational Drug Use: No Drugs: None - Advance Directive Resuscitation Status: Full Code Family History Family History: Reviewed & Not Pertinent Parental Family History Reviewed: No - Unobtainable due to altered mental status Children Family History Reviewed: No Sibling(s) Family History Reviewed.: No Medication/Allergy Home Medications: Benztropine Mesylate [Cogentin 1 mg Tablet] 1 mg PO BID 01/12/19 Biotin 5,000 mcg PO DAILY 01/12/19 Calcium Carbonate/Vitamin D3 [Calcium 600-Vit D3 500 Softgel] 2 cap PO DAILY 01/12/19 Cholecalciferol (Vitamin D3) [Vitamin D3 2000 unit Tablet] 2,000 unit PO DAILY 01/12/19 Ferrous Sulfate [Feosol 325 mg Tablet] 325 mg PO DAILY 01/12/19 Hydroxyzine Pamoate [Vistaril 50 mg Capsule] 50 mg PO Q8 01/12/19 [place] Carbonate [[place] Carbonate ER] 300 mg PO QAM 01/12/19 [place] Carbonate [[place] Carbonate ER] 600 mg PO QPM 01/12/19 Loratadine [Claritin 10 mg Tablet] 10 mg PO DAILYP PRN 01/12/19 Melatonin 10 mg PO QHS 01/12/19 Meloxicam [Mobic] 15 mg PO DAILY 01/12/19 Mv-Min/Iron/Folic/Calcium/Vitk [Women's Multivitamin Tablet] 1 tab PO DAILY 01/12/19 Omeprazole 40 mg PO [id number] 01/12/19 Perphenazine 2 mg PO QHS 01/12/19 Risperidone [Risperdal] 1 mg PO BID 01/12/19 Fluticasone Propionate [Flonase Nasal [place] 50 Mcg/[place] 16 gm] 1 spray NASL Q12 #1 spray.pump 01/16/19 Allergies/Adverse Reactions: No Known Allergies Allergy (Verified 08/12/18 19:03) Review of Systems ROS unobtainable: Due to mental status Physical Exam Vital Signs: Temp Pulse Resp BP Pulse Ox 98.6 F 94 23 H 112/68 98 07/14/20 02:00 07/14/20 02:00 07/14/20 02:00 07/14/20 02:00 07/14/20 02:00 Intake & Output 07/12/20 07/13/20 07/14/20 06:59 06:59 06:59 Intake Total 3200 Balance 3200 Weight 75.3 kg Additional comments: GENERAL APPEARANCE: Lethargic but easily arousable, he is nonverbal, in no acute distress HEENT: Normocephalic and atraumatic. No scleral icterus. Dry oral mucosa NECK: Supple. No lymphadenopathy or tenderness. No carotid bruit. No JVD CHEST: Symmetric. Nontender to palpation. LUNGS: Has transmitted sounds across her chest but good air entry HEART: Regular rate and rhythm with normal S1 and S2. No murmurs, gallops, or rubs. ABDOMEN: soft, active bowel sounds, no direct or rebound tenderness. No organomegaly detected. EXTREMITIES: No cyanosis, clubbing, or edema. MUSCULOSKELETAL: No deformity, atrophy or swelling noted PSYCHIATRIC: The patient is nonverbal and has altered mentation SKIN: Warm, dry, and well perfused. No lesions or rashes are noted. NEUROLOGIC: Detailed neuro exam cannot be done due to altered mentation. Patient able to move all 4 extremities. Meningeal signs are negative Results Laboratory Results: 07/13/20 16:24 07/13/20 21:50 07/13/20 07/13/20 07/13/20 16:24 16:24 16:24 WBC 16.8 H RBC 4.32 Hgb 12.9 Hct 37.5 MCV 87 MCH 29.8 MCHC 34.3 RDW 13.9 Plt Count 288 Seg Neutrophils % 88.1 H Carbonic Acid HCO3/H2CO3 Ratio ABG pH ABG pCO2 ABG pO2 ABG HCO3 ABG O2 Saturation ABG Base Excess FiO2 Sodium 139.6 Potassium 3.4 L Chloride 103 Carbon Dioxide 18 L Anion Gap 19 BUN 43 H Creatinine 3.47 H Est GFR ( Amer) 16 L Glucose 173 H Serum Osmolality Calcium 10.9 H Phosphorus Magnesium Total Bilirubin 0.6 AST 78 H Alkaline Phosphatase 192 H Total Protein 8.2 Albumin 5.1 H TSH 2.11 Free T4 1.05 Urine Color Urine Appearance Urine pH Ur Specific Council Urine Protein Urine Glucose (UA) Urine Ketones Urine Blood Urine Nitrite Ur Leukocyte Esterase Urine WBC (Auto) Urine RBC (Auto) Urine Osmolality 07/13/20 07/13/20 07/13/20 16:24 16:24 16:58 WBC RBC Hgb Hct MCV MCH MCHC RDW Plt Count Seg Neutrophils % Carbonic Acid HCO3/H2CO3 Ratio ABG pH ABG pCO2 ABG pO2 ABG HCO3 ABG O2 Saturation ABG Base Excess FiO2 Sodium Potassium Chloride Carbon Dioxide Anion Gap BUN Creatinine Est GFR ( Amer) Glucose Serum Osmolality 303 H Calcium Phosphorus 4.4 Magnesium 2.4 H Total Bilirubin AST Alkaline Phosphatase Total Protein Albumin TSH Free T4 Urine Color PEE Urine Appearance CLOUDY Urine pH 5.0 Ur Specific [place] 1.019 Urine Protein 100 H Urine Glucose (UA) NEGATIVE Urine Ketones TRACE H Urine Blood NEGATIVE Urine Nitrite NEGATIVE Ur Leukocyte Esterase NEGATIVE Urine WBC (Auto) 7 Urine RBC (Auto) 1 Urine Osmolality 07/13/20 07/13/20 07/13/20 16:58 17:47 21:50 WBC RBC Hgb Hct MCV MCH MCHC RDW Plt Count Seg Neutrophils % Carbonic Acid 0.88 L HCO3/H2CO3 Ratio 21:1 ABG pH 7.42 ABG pCO2 29.2 L ABG pO2 64.8 L ABG HCO3 18.6 L ABG O2 Saturation 93.4 L ABG Base Excess -4.7 FiO2 ROOM AIR Sodium 140.2 Potassium 4.1 Chloride 111 H Carbon Dioxide 18 L Anion Gap 11 BUN 38 H Creatinine 2.27 H Est GFR ( Amer) 27 L Glucose 127 H Serum Osmolality Calcium 8.8 Phosphorus Magnesium Total Bilirubin AST Alkaline Phosphatase Total Protein Albumin TSH Free T4 Urine Color Urine Appearance Urine pH Ur Specific Council Urine Protein Urine Glucose (UA) Urine Ketones Urine Blood Urine Nitrite Ur Leukocyte Esterase Urine WBC (Auto) Urine RBC (Auto) Urine Osmolality 397 07/13/20 16:24 Troponin I < 0.012 Impressions: Chest X-Ray 07/13/20 15:43 IMPRESSION: Subsegmental atelectasis at the bilateral lung bases. No con solidation or pleural effusion. Head CT 07/13/20 15:43 IMPRESSION: No acute intracranial process is identified. The cause of the patient's mental status change is not identified on this examination. Assessment and Plan - Diagnosis (1) Acute encephalopathy Is this a current diagnosis for this admission?: Yes Plan: Reportedly patient is altered from her baseline Unclear patient's baseline functional status Likely due to lithium intoxication and associated acute kidney injury Has no fever and meningeal signs are negative on physical exam Leukocytosis could be explained by lithium intoxication which can elevate WBC count Will continue to treat underlying cause with IV hydration Under fall precaution, aspiration precaution, seizure precaution Currently unlikely that she will require dialysis Closely monitor mental status and serum lithium, creatinine and sodium levels (2) [place] toxicity Qualifiers: Encounter type: initial encounter Injury intent: accidental or unintentio nal Qualified Code(s): T56.891A - Toxic effect of other metals, accidental (unintentional), initial encounter Is this a current diagnosis for this admission?: Yes Plan: Patient is on chronic lithium therapy for bipolar disorder Now presents with altered mentation Initial lithium level was elevated at 2.9 which has trended down to 2.6 after hydration EKG shows prolonged QTc Serum sodium level and TSH were within the normal limit Currently her mental status is improving Continue IV hydration Closely monitor serum sodium level for possible NDI Monitor I&O's (3) NALDO (acute kidney injury) Is this a current diagnosis for this admission?: Yes Plan: Likely prerenal from volume depletion Patient was hydrated with 4 L of normal saline at the ED Creatinine has improved from 3.4 >>> 2.2 Continue IV hydration Closely monitor BMP Avoid nephrotoxic's and renally dose medications (4) Metabolic acidosis Is this a current diagnosis for this admission?: Yes Plan: Likely due to acute kidney injury Continue IV hydration (5) Hypokalemia Is this a current diagnosis for this admission?: Yes Plan: Serum potassium 3.4 Replete with potassium chloride and monitor electrolytes (6) Leukocytosis Is this a current diagnosis for this admission?: Yes Plan: Currently has no sign of infection Chest x-ray showed no consolidation or infiltrates Likely due to lithium intoxication Blood culture has been obtained Continue monitoring CBC (7) Bipolar disorder Is this a current diagnosis for this admission?: Yes Plan: Patient was on lithium for mood stabilization But presented now with altered mental status likely from lithium toxicity We will hold lithium for now Will consider psych evaluation - Time Time Spent with patient: 35 or more minutes Total Critical Time (Minutes): 60 Medications reviewed and adjusted accordingly: Yes Anticipated Discharge Disposition: [facility] Anticipated Discharge Timeframe: within 72 hours - Inpatient Certification Based on my medical assessment, after consideration of the patient's comorbidities, presenting symptoms, or acuity I expect that the services needed warrant INPATIENT care.: Yes I certify that my determination is in accordance with my understanding of Medicare's requirements for reasonable and necessary INPATIENT services [42 CFR 412.3e].: Yes Medical Necessity: Need Close Monitoring Due to Risk of Patient Decompensation, Need For IV Fluids, Need For Continuous Telemetry Monitoring, Risk of Complication if Not Cared For in Hospital Post Hospital Care: D/C or Transfer Summary
[2020-07-14 06:55] LABS: ABSOLUTE LYMPHOCYTES (AUTO) 0.7 10^3/uL (0.5-4.7); ABSOLUTE MONOCYTES (AUTO) 0.7 10^3/uL (0.1-1.4); ABSOLUTE NEUT (AUTO) 8.7 10^3/uL (1.7-8.2); BASOPHILS % (AUTO) 0.4 % (0-2); HEMATOCRIT 27.9 % (36.0-47.0); LYMPHOCYTES % (AUTO) 7.1 % (13-45); MEAN CORPUSCULAR HEMOGLOBIN 30.5 pg (27.0-33.4); MEAN CORPUSCULAR VOLUME 87 fl (80-97); MONOCYTES % (AUTO) 6.7 % (3-13); PLATELET COUNT 174 10^3/uL (150-450); RED BLOOD COUNT 3.21 10^6/uL (3.72-5.28); RED CELL DISTRIBUTION WIDTH 13.7 % (11.5-14.0); SEGMENTED NEUTROPHILS % (AUTO) 85.8 % (42-78); TOTAL CELLS COUNTED % (AUTO) 100 %; WHITE BLOOD COUNT 10.1 10^3/uL (4.0-10.5)
[2020-07-14 06:57] LABS: HEMOGLOBIN 9.8 g/dL (12.0-15.5)
[2020-07-14] MEDS: NORMAL SALINE 1000 ML 1,000 ML IV PRN ×2 (06:57→13:31)
[2020-07-14 07:14] LABS: ANION GAP 10 (5-19); BLOOD UREA NITROGEN 34 mg/dL (7-20); CALCIUM 8.9 mg/dL (8.4-10.2); CARBON DIOXIDE 17 mmol/L (22-30); CHLORIDE 115 mmol/L (98-107); CREATINE KINASE 70 U/L (30-135); GLUCOSE 160 mg/dL (75-110); POTASSIUM 3.2 mmol/L (3.6-5.0)
[2020-07-14 07:17] LABS: LITHIUM 2.2 mEq/L (0.6-1.2)
[2020-07-14] MEDS ORDERED: POTASSIUM CHLORIDE 10 MEQ TABLET.ER PO SCH (09:00)
[2020-07-14] MEDS ORDERED: POTASSIUM CHLORIDE 20 MEQ PACKET PO SCH (12:00)
[2020-07-14] MEDS ORDERED: POTASSIUM CHLORIDE 20 MEQ PACKET PO ONE ×2 (12:00→20:00)
[2020-07-14] MEDS: HEPARIN SOD (PORCINE) 5,000 UNIT/ML 1 ML VIAL SUBCUT SCH ×2 (12:01→21:23)
[2020-07-14] MEDS: POTASSI CL 20 MEQ/50 ML RIDER 20 MEQ/50 ML RTUPB IV SCH ×2 (12:51→14:48)
--- NOTE | 2020-07-14 13:52 | Progress Note ---
Provider Note Provider Note: I have seen and assessed patient today. She is wide-awake reports not saying anything. She is not responding to any questions or following commands but just blankly staring at me. Although lithium toxicity may have some contributed to her mental state in terms of her sluggishness, I believe her psychiatric history must be playing a vital role in her mental status state especially with the mutism. I was made aware that psychiatry has already seen patient but I have placed a consult order and will await their recommendations. In terms of her lithium toxicity, she is certainly showing evidence of lithium induced renal toxicity with NALDO and concomitant hypokalemia. We will continue with normal saline infusion while monitoring her BMP twice a day as she is at risk of developing hypernatremia. Start on diet. Quantify I's and O's. Check lithium levels in the morning. Her lithium has been stopped and she will need a replacement which psych will help us with.
--- NOTE | 2020-07-14 17:06 | PDOC CONSULTATION ---
Consultation-Blank Consultation: Completed a chart review following bookkeeper receptionist of the Hospitalist consult for alternate medication recommendations for bipolar disorder. Patient is a 59 year old female who was brought to the emergency depart on 07.13.2020 from [facility] with reported lithium toxicity and symptoms of lethargy, mutism, and altered mental status. Review of the emergency department notes reveal a critical lithium level of 2.9 with a subsequent decrease to critical level of 2.2 following administration of fluids. Patient's mental status improved slightly but remained altered, lethargic, and mute. Multiple attempts by the hospitalist to evaluate the patient revealed slight improvement but not enough and thus, she was admitted to the ICMU for continued care and treatment. She was started on Haldol 2 mg bid and Cogentin 1 mg bid as psychiatric medication. Patient had a head CT with results within normal limits. Chest CT results were generally unremarkable. Kidney results continue to be elevated though generally trending down following treatment with fluids. Potassium was slightly low and she has received potassium replenishment. Her hemoglobin levels dropped overnight but it was likely a result of hemo-dilution from IV fluid intake to address the lithium toxicity. At this time, the treatment of Haldol of cogentin are appropriate as continued psychotropic medication as they are both primarily metabolized through the liver through the first bypass process. As the lithium level continues to decline tow ards therapeutic levels, her mental status will likely continue to improve and hopefully we will see her ability to participate in verbal communication increase. It is important to determine how her lithium levels began so high, whether her prescribed amount was too high, there is another medical concern to be aware of, or whether the patient engaged in a self-harm or suicide attempt prior to her admission to [facility]. Per [facility] consulting psychiatrist, the admission of another mood stabilizer such as Depakote, Keppra, or Zyprexa is not immediately necessary until her lithium level is closer to, or is within therapeutic range. At this time, he recommends to continue the Haldol at 2 mg twice per day and the cogentin at 1 mg daily. Behavioral Health Team will attempt to engage the patient and obtain further information. It would be helpful if the assigned materials planner could reach out to [facility] in an attempt to obtain the patient's medical records for her most current admission to their facility as the patient will likely return to their facility upon discharge if appropriate. The Behavioral Health Team will attempt to obtain the patient's status at [facility] (i.e. voluntary vs. involuntary).
[2020-07-14 17:31] LABS: ANION GAP 11 (5-19); BLOOD UREA NITROGEN 25 mg/dL (7-20); CALCIUM 9.3 mg/dL (8.4-10.2); CARBON DIOXIDE 16 mmol/L (22-30); CHLORIDE 118 mmol/L (98-107); GLUCOSE 120 mg/dL (75-110); POTASSIUM 3.4 mmol/L (3.6-5.0)
--- NOTE | 2020-07-14 18:11 | EKG REPORT ---
SEVERITY:- ABNORMAL ECG - SINUS RHYTHM PROLONGED QT INTERVAL : Confirmed by: Robbie Weston MD 14-Jul-2020 18:10:55
--- NOTE | 2020-07-14 18:11 | EKG REPORT ---
SEVERITY:- BORDERLINE ECG - SINUS RHYTHM BORDERLINE PROLONGED QT INTERVAL : Confirmed by: Robbie Weston MD 14-Jul-2020 18:10:48
[2020-07-14] MEDS: BENZTROPINE MESYLATE 1 MG TABLET PO SCH (18:22)
[2020-07-14] MEDS: HALOPERIDOL 2 MG TABLET PO SCH (18:22)
[2020-07-14] MEDS: 1/2 NORMAL SALINE 1,000 ML IV PRN ×2 (18:31→23:51)
[2020-07-15] MEDS: 1/2 NORMAL SALINE 1,000 ML IV PRN (05:52)
[2020-07-15 06:30] LABS: ABSOLUTE BASOPHILS # (AUTO) 0.1 10^3/uL (0.0-0.2); ABSOLUTE EOSINOPHILS # (AUTO) 0.1 10^3/uL (0.0-0.6); ABSOLUTE LYMPHOCYTES (AUTO) 1.5 10^3/uL (0.5-4.7); ABSOLUTE MONOCYTES (AUTO) 1.1 10^3/uL (0.1-1.4); ABSOLUTE NEUT (AUTO) 9.2 10^3/uL (1.7-8.2); BASOPHILS % (AUTO) 0.5 % (0-2); EOSINOPHILS % (AUTO) 0.5 % (0-6); HEMOGLOBIN 10.1 g/dL (12.0-15.5); LYMPHOCYTES % (AUTO) 12.9 % (13-45); MEAN CORPUSCULAR HEMOGLOBIN 29.7 pg (27.0-33.4); MEAN CORPUSCULAR HGB CONC 33.8 g/dL (32.0-36.0); MEAN CORPUSCULAR VOLUME 88 fl (80-97); PLATELET COUNT 166 10^3/uL (150-450); RED BLOOD COUNT 3.41 10^6/uL (3.72-5.28); RED CELL DISTRIBUTION WIDTH 13.8 % (11.5-14.0); SEGMENTED NEUTROPHILS % (AUTO) 77.1 % (42-78); TOTAL CELLS COUNTED % (AUTO) 100 %; WHITE BLOOD COUNT 11.9 10^3/uL (4.0-10.5)
[2020-07-15 06:55] LABS: ANION GAP 11 (5-19); BLOOD UREA NITROGEN 17 mg/dL (7-20); CALCIUM 9.4 mg/dL (8.4-10.2); CARBON DIOXIDE 15 mmol/L (22-30); CHLORIDE 116 mmol/L (98-107); GLUCOSE 125 mg/dL (75-110); LITHIUM 1.4 mEq/L (0.6-1.2); POTASSIUM 3.2 mmol/L (3.6-5.0)
[2020-07-15] MEDS ORDERED: 1/2 NORMAL SALINE 1,000 ML IV PRN (08:18)
[2020-07-15] MEDS ORDERED: 1/2 NORMAL SALINE 1,000 ML with POTASSIUM CHLORIDE 40 MEQ IV PRN ×2 (08:24)
[2020-07-15] MEDS ORDERED: PERPHENAZINE 2 MG PO SCH (10:00)
[2020-07-15] MEDS ORDERED: POTASSIUM CHLORIDE 10 MEQ TABLET.ER PO SCH (10:00)
[2020-07-15] MEDS: BENZTROPINE MESYLATE 1 MG TABLET PO SCH ×2 (11:10→18:03)
[2020-07-15] MEDS: HALOPERIDOL 2 MG TABLET PO SCH ×2 (11:10→18:03)
[2020-07-15] MEDS: HEPARIN SOD (PORCINE) 5,000 UNIT/ML 1 ML VIAL SUBCUT SCH ×2 (11:10→21:12)
--- NOTE | 2020-07-15 18:05 | PDOC PROGRESS REPORT ---
Subjective Date:: 07/15/20 Subjective:: Patient is mute and only moans all day long. When I tell her stop moaning, she s tarts laughing mildly. That is all the communication I have been able to achieve with patient. She is not eating or drinking and just lays there. Reason For Visit: ACUTE METABOLIC ENCEPHALOPATHY FROM DRUG OVERDOSE, Physical Exam Vital Signs: Temp Pulse Resp BP Pulse Ox 98.7 F 87 18 138/76 H 97 07/15/20 16:16 07/15/20 16:16 07/15/20 16:16 07/15/20 16:16 07/15/20 16:16 Intake & Output 07/14/20 07/15/20 07/16/20 06:59 06:59 06:59 Intake Total 4200 4059 1050 Output Total 700 2500 Balance 3500 1559 1050 Weight 75.3 kg 78.7 kg General appearance: PRESENT: no acute distress. ABSENT: cooperative Head exam: PRESENT: normocephalic Eye exam: PRESENT: PERRLA Respiratory exam: PRESENT: clear to auscultation manolo, symmetrical, unlabored. ABSENT: accessory muscle use, retraction, tachypnea, wheezes Cardiovascular exam: PRESENT: RRR, +S1, +S2. ABSENT: tachycardia GI/Abdominal exam: PRESENT: soft. ABSENT: rebound, rigid, tenderness Musculoskeletal exam: PRESENT: other - muscles are not stiff or rigid Neurological exam: PRESENT: alert, awake, oriented to person, oriented to place, oriented to time, oriented to situation Psychiatric exam: PRESENT: depressed, flat affect, unusual affect, other - patient is mute and simply moan all day. ABSENT: agitated, anxious, appropriate affect Focused psych exam: ABSENT: restlessness Results Laboratory Results: 07/15/20 05:47 07/15/20 05:47 07/14/20 07/15/20 07/15/20 17:00 05:47 05:47 WBC 11.9 H RBC 3.41 L Hgb 10.1 L Hct 30.0 L MCV 88 MCH 29.7 MCHC 33.8 RDW 13.8 Plt Count 166 Seg Neutrophils % 77.1 Sodium 145.4 H 141.6 Potassium 3.4 L 3.2 L Chloride 118 H 116 H Carbon Dioxide 16 L 15 L Anion Gap 11 11 BUN 25 H 17 Creatinine 1.12 0.90 Est GFR ( Amer) > 60 > 60 Glucose 120 H 125 H Calcium 9.3 9.4 Magnesium 2.2 07/13/20 16:58 Catheterized Urine Urine Culture - Final NO GROWTH 2 DAYS 07/14/20 05:33 Blood Blood Culture (PCR) - Final Staphylococcus Species 07/13/20 07/14/20 07/14/20 16:24 05:33 06:31 Creatine Kinase Cancelled 70 Troponin I < 0.012 Impressions: Chest X-Ray 07/13/20 15:43 IMPRESSION: Subsegmental atelectasis at the bilateral lung bases. No co nsolidation or pleural effusion. Head CT 07/13/20 15:43 IMPRESSION: No acute intracranial process is identified. The cause of the patient's mental status change is not identified on this examination. Assessment and Plan - Diagnosis (1) Acute encephalopathy Is this a current diagnosis for this admission?: Yes Plan: Patient is essentially with mutism and moans all day long. While lithium toxicity may have some contribution in terms of a toxic metabolic encephalopathy and could cause some depressed state, sluggishness and other neurologic sequelae including tremors, I do not believe it causes mutism in somebody who is wide-awake. It is likely a manifestation of a schizoaffective bipolar type. I will defer to psychiatry for management of this. Head CT is unremarkable, thyroid function is normal, urinalysis is negative for UTI, patient does not admonish any pain. (2) [place] toxicity Qualifiers: Encounter type: initial encounter Injury intent: accidental or unintention al Qualified Code(s): T56.891A - Toxic effect of other metals, accidental (unintentional), initial encounter Is this a current diagnosis for this admission?: Yes Plan: Patient was on chronic lithium therapy. Continue IV fluids with half-normal saline rate reduced today to 140 cc/h until lithium is no longer supratherapeutic. [place] levels have improved. Continue to monitor lithium level (3) NALDO (acute kidney injury) Is this a current diagnosis for this admission?: Yes Plan: Likely prerenal plus intrinsic renal injury from lithium renal toxicity. Her creatinine has normalized with IV fluids. She is having good urinary output. Check BMP in the morning. Monitor urine osm. 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 We will have to test this before discharge. (4) Schizoaffective disorder, bipolar type Is this a current diagnosis for this admission?: Yes Plan: I have discussed with the nursing pit and auxiliaries supervisor at [facility] who informs me that patient was there for 3 days, presented mute and withdrawn, uses [place] at home, diagnoses on file are Scizoaffective-bipolar type and Schizophrenia- unspecified and was transferred here due to tremors and diaphoresis and mental state eval. Psych has been consulted for replacement of lithium therapy. Psych recommends continuing regimen of haloperidol and Cogentin and mood stabilizer will be started once lithium level is subtherapeutic. (5) Hypokalemia Is this a current diagnosis for this admission?: Yes Plan: Part of the lithium toxicity cascade. Receiving potassium riders with ivf. - Time Time Spent with patient: 15-24 minutes Anticipated Discharge Disposition: Psych Hospital/Unit Anticipated Discharge Timeframe: within 48 hours
[2020-07-15 18:30] LABS: ANION GAP 12 (5-19); BLOOD UREA NITROGEN 11 mg/dL (7-20); CALCIUM 9.5 mg/dL (8.4-10.2); CARBON DIOXIDE 18 mmol/L (22-30); CHLORIDE 109 mmol/L (98-107); GLUCOSE 108 mg/dL (75-110); POTASSIUM 3.4 mmol/L (3.6-5.0)
[2020-07-15] MEDS ORDERED: POTASSIUM CHLORIDE 10 MEQ TABLET.ER PO ONE (19:05)
[2020-07-16 06:43] LABS: ABSOLUTE BASOPHILS # (AUTO) 0.1 10^3/uL (0.0-0.2); ABSOLUTE EOSINOPHILS # (AUTO) 0.2 10^3/uL (0.0-0.6); ABSOLUTE LYMPHOCYTES (AUTO) 1.3 10^3/uL (0.5-4.7); ABSOLUTE MONOCYTES (AUTO) 0.7 10^3/uL (0.1-1.4); ABSOLUTE NEUT (AUTO) 6.5 10^3/uL (1.7-8.2); BASOPHILS % (AUTO) 0.6 % (0-2); EOSINOPHILS % (AUTO) 2.7 % (0-6); HEMATOCRIT 32.5 % (36.0-47.0); HEMOGLOBIN 11.2 g/dL (12.0-15.5); LYMPHOCYTES % (AUTO) 14.3 % (13-45); MEAN CORPUSCULAR HEMOGLOBIN 29.8 pg (27.0-33.4); MEAN CORPUSCULAR HGB CONC 34.4 g/dL (32.0-36.0); MEAN CORPUSCULAR VOLUME 87 fl (80-97); MONOCYTES % (AUTO) 8.2 % (3-13); PLATELET COUNT 171 10^3/uL (150-450); RED BLOOD COUNT 3.74 10^6/uL (3.72-5.28); RED CELL DISTRIBUTION WIDTH 13.8 % (11.5-14.0); SEGMENTED NEUTROPHILS % (AUTO) 74.2 % (42-78); TOTAL CELLS COUNTED % (AUTO) 100 %; WHITE BLOOD COUNT 8.8 10^3/uL (4.0-10.5)
[2020-07-16 07:08] LABS: ANION GAP 10 (5-19); BLOOD UREA NITROGEN 9 mg/dL (7-20); CALCIUM 9.4 mg/dL (8.4-10.2); CARBON DIOXIDE 22 mmol/L (22-30); CHLORIDE 107 mmol/L (98-107); GLUCOSE 161 mg/dL (75-110); LITHIUM 0.8 mEq/L (0.6-1.2); POTASSIUM 3.3 mmol/L (3.6-5.0)
[2020-07-16] MEDS: BENZTROPINE MESYLATE 1 MG TABLET PO SCH ×2 (10:27→17:05)
[2020-07-16] MEDS: HEPARIN SOD (PORCINE) 5,000 UNIT/ML 1 ML VIAL SUBCUT SCH ×2 (10:27→21:13)
[2020-07-16] MEDS: HALOPERIDOL 2 MG TABLET PO SCH ×2 (10:27→17:05)
--- NOTE | 2020-07-16 16:47 | PDOC PROGRESS REPORT ---
Subjective Date:: 07/16/20 Subjective:: No adverse events overnight. Patient is more interactive and talkative today. She says that she has been eating and her appetite feels okay. She is documented is only taking bites of her meals. Reason For Visit: ACUTE METABOLIC ENCEPHALOPATHY FROM DRUG OVERDOSE, Physical Exam Vital Signs: Temp Pulse Resp BP Pulse Ox 99.0 F 90 18 144/94 H 96 07/16/20 15:16 07/16/20 15:16 07/16/20 15:16 07/16/20 15:16 07/16/20 15:16 Intake & Output 07/15/20 07/16/20 07/17/20 06:59 06:59 06:59 Intake Total 4059 1456 230 Output Total 2500 5355 600 Balance 6693 -6700 -009 Weight 78.7 kg 80.2 kg General appearance: PRESENT: no acute distress, cooperative Head exam: PRESENT: normocephalic Eye exam: PRESENT: PERRLA Respiratory exam: PRESENT: clear to auscultation manolo, symmetrical, unlabored. ABSENT: accessory muscle use, retraction, tachypnea, wheezes Cardiovascular exam: PRESENT: RRR, +S1, +S2. ABSENT: tachycardia GI/Abdominal exam: PRESENT: soft. ABSENT: rebound, rigid, tenderness Musculoskeletal exam: PRESENT: Displays full independent use of all 4 extremities Neurological exam: PRESENT: alert, awake, oriented to person, oriented to place, oriented to situation Psychiatric exam: PRESENT: flat affect, unusual affect Focused psych exam: ABSENT: restlessness Results Laboratory Results: 07/16/20 06:29 07/16/20 06:29 07/15/20 07/15/20 07/16/20 17:26 17:26 06:29 WBC 8.8 RBC 3.74 Hgb 11.2 L Hct 32.5 L MCV 87 MCH 29.8 MCHC 34.4 RDW 13.8 Plt Count 171 Seg Neutrophils % 74.2 Sodium 138.8 Potassium 3.4 L Chloride 109 H Carbon Dioxide 18 L Anion Gap 12 BUN 11 Creatinine 0.83 Est GFR ( Amer) > 60 Glucose 108 Serum Osmolality 290 Calcium 9.5 Urine Osmolality 07/16/20 07/16/20 06:29 07:08 WBC RBC Hgb Hct MCV MCH MCHC RDW Plt Count Seg Neutrophils % Sodium 139.1 Potassium 3.3 L Chloride 107 Carbon Dioxide 22 Anion Gap 10 BUN 9 Creatinine 0.66 Est GFR ( Amer) > 60 Glucose 161 H Serum Osmolality Calcium 9.4 Urine Osmolality 550 07/14/20 05:33 Blood Blood Culture (PCR) - Final Staphylococcus Species 07/13/20 07/14/20 07/14/20 16:24 05:33 06:31 Creatine Kinase Cancelled 70 Troponin I < 0.012 Impressions: Chest X-Ray 07/13/20 15:43 IMPRESSION: Subsegmental atelectasis at the bilateral lung bases. No consolidation or pleural effusion. Head CT 07/13/20 15:43 IMPRESSION: No acute intracranial process is identified. The cause of the patient's mental status change is not identified on this examination. Assessment and Plan - Diagnosis (1) Toxic encephalopathy Is this a current diagnosis for this admission?: Yes (2) NALDO (acute kidney injury) Is this a current diagnosis for this admission?: Yes (3) Bipolar disorder Qualifiers: Active/Remission status: currently active Current bipolar episode type: depressed Current episode severity: unspecified Qualified Code(s): F31.30 - Bipolar disorder, current episode depressed, mild or moderate severity, unspecified Is this a current diagnosis for this admission?: Yes (4) [employer] toxicity Qualifiers: Encounter type: initial encounter Injury intent: accidental or unintentional Qualified Code(s): T56.891A - Toxic effect of other metals, accidental (unintentional), initial encounter Is this a current diagnosis for this admission?: Yes (5) Metabolic acidosis Is this a current diagnosis for this admission?: Yes (6) Schizoaffective disorder, bipolar type Is this a current diagnosis for this admission?: Yes - Plan Summary Summary: [employer] levels are now normal a. [employer] has obviously been discontinued. She is on Haldol and Cogentin at the recommendation of psychiatry. She seems to be tolerating it well thus far. We are monitoring her for the development of nephrogenic diabetes insipidus, monitoring her electrolytes and fluid intake since we have discontinued her IV fluids. She has a Covid test pending in anticipation of placement. - Time Time Spent with patient: 15-24 minutes Anticipated Discharge Disposition: Psych Hospital/Unit Anticipated Discharge Timeframe: Undetermined
[2020-07-17] MEDS: HALOPERIDOL 2 MG TABLET PO SCH ×2 (09:50→18:04)
[2020-07-17] MEDS: BENZTROPINE MESYLATE 1 MG TABLET PO SCH ×2 (09:50→18:04)
[2020-07-17] MEDS: HEPARIN SOD (PORCINE) 5,000 UNIT/ML 1 ML VIAL SUBCUT SCH ×2 (09:50→21:31)
[2020-07-17 10:30] LABS: ANION GAP 13 (5-19); BLOOD UREA NITROGEN 13 mg/dL (7-20); CALCIUM 9.7 mg/dL (8.4-10.2); CARBON DIOXIDE 25 mmol/L (22-30); CHLORIDE 102 mmol/L (98-107); GLUCOSE 190 mg/dL (75-110); POTASSIUM 3.4 mmol/L (3.6-5.0)
[2020-07-17] MEDS ORDERED: POTASSIUM CHLORIDE 10 MEQ TABLET.ER PO ONE (12:00)
--- NOTE | 2020-07-17 16:38 | PDOC PROGRESS REPORT ---
Subjective Date:: 07/17/20 Subjective:: No adverse events overnight. No new complaints. Vital signs been stable. She has been interacting with the staff and has been calm and cooperative. Reason For Visit: ACUTE METABOLIC ENCEPHALOPATHY FROM DRUG OVERDOSE, Physical Exam Vital Signs: Temp Pulse Resp BP Pulse Ox 98.1 F 90 16 106/68 98 07/17/20 12:51 07/17/20 14:00 07/17/20 12:51 07/17/20 12:51 07/17/20 12:51 Intake & Output 07/16/20 07/17/20 07/18/20 06:59 06:59 06:59 Intake Total 1456 330 Output Total 3675 8000 Balance -2219 -1420 Weight 80.2 kg 76.1 kg General appearance: PRESENT: no acute distress, cooperative Head exam: PRESENT: normocephalic Eye exam: PRESENT: PERRLA Respiratory exam: PRESENT: clear to auscultation manolo, symmetrical, unlabored. ABSENT: accessory muscle use, retraction, tachypnea, wheezes Cardiovascular exam: PRESENT: RRR, +S1, +S2. ABSENT: tachycardia GI/Abdominal exam: PRESENT: soft. ABSENT: rebound, rigid, tenderness Musculoskeletal exam: PRESENT: Displays full independent use of all 4 extremities Neurological exam: PRESENT: alert, awake, oriented to person, oriented to place, oriented to situation Psychiatric exam: PRESENT: flat affect, unusual affect Focused psych exam: ABSENT: restlessness Results Laboratory Results: 07/16/20 06:29 07/17/20 09:50 07/17/20 09:50 Sodium 139.6 Potassium 3.4 L Chloride 102 Carbon Dioxide 25 Anion Gap 13 BUN 13 Creatinine 0.66 Est GFR ( Amer) > 60 Glucose 190 H Calcium 9.7 07/14/20 05:33 Blood Blood Culture (PCR) - Final Staphylococcus Species 07/14/20 05:33 Blood Blood Culture - Final Staphylococcus Capitis 07/13/20 07/14/20 07/14/20 16:24 05:33 06:31 Creatine Kinase Cancelled 70 Troponin I < 0.012 Impressions: Chest X-Ray 07/13/20 15:43 IMPRESSION: Subsegmental atelectasis at the bilateral lung bases. No consoli dation or pleural effusion. Head CT 07/13/20 15:43 IMPRESSION: No acute intracranial process is identified. The cause of the patient's mental status change is not identified on this examination. Assessment and Plan - Diagnosis (1) Toxic encephalopathy Is this a current diagnosis for this admission?: Yes (2) NALDO (acute kidney injury) Is this a current diagnosis for this admission?: Yes (3) Bipolar disorder Qualifiers: Active/Remission status: currently active Current bipolar episode type: depressed Current episode severity: unspecified Qualified Code(s): F31.30 - Bipolar disorder, current episode depressed, mild or moderate severity, unspecified Is this a current diagnosis for this admission?: Yes (4) [employer] toxicity Qualifiers: Encounter type: initial encounter Injury intent: accidental or unintentio nal Qualified Code(s): T56.891A - Toxic effect of other metals, accidental (unintentional), initial encounter Is this a current diagnosis for this admission?: Yes (5) Metabolic acidosis Is this a current diagnosis for this admission?: Yes (6) Schizoaffective disorder, bipolar type Is this a current diagnosis for this admission?: Yes - Plan Summary Summary: [place] levels are now normal a. [employer] has obviously been discontinued. She is on Haldol and Cogentin at the recommendation of psychiatry. She seems to be tolerating it well thus far. Her repeat metabolic panel was normal. Serum potassium was just a bit low at 3.4 and so that was replaced with an oral supplement. She has a Covid test pending in anticipation of placement. Even though her labs this morning were normal, the psychiatric facility has requested repeat labs this evening, which have been ordered. - Time Time Spent with patient: 15-24 minutes Anticipated Discharge Disposition: Psych Hospital/Unit Anticipated Discharge Timeframe: within 24 hours
[2020-07-17 17:48] LABS: HEMATOCRIT 37.4 % (36.0-47.0); HEMOGLOBIN 12.5 g/dL (12.0-15.5); MEAN CORPUSCULAR HEMOGLOBIN 29.1 pg (27.0-33.4); MEAN CORPUSCULAR HGB CONC 33.4 g/dL (32.0-36.0); MEAN CORPUSCULAR VOLUME 87 fl (80-97); PLATELET COUNT 197 10^3/uL (150-450); RED CELL DISTRIBUTION WIDTH 13.9 % (11.5-14.0); WHITE BLOOD COUNT 11.8 10^3/uL (4.0-10.5)
[2020-07-17 17:54] LABS: ANION GAP 13 (5-19); BLOOD UREA NITROGEN 14 mg/dL (7-20); CALCIUM 9.4 mg/dL (8.4-10.2); CARBON DIOXIDE 24 mmol/L (22-30); CHLORIDE 100 mmol/L (98-107); GLUCOSE 209 mg/dL (75-110); POTASSIUM 3.2 mmol/L (3.6-5.0)
[2020-07-18] MEDS ORDERED: POTASSIUM CHLORIDE 10 MEQ TABLET.ER PO ONE ×2 (09:00→15:45)
[2020-07-18] MEDS: BENZTROPINE MESYLATE 1 MG TABLET PO SCH (10:39)
[2020-07-18] MEDS: HALOPERIDOL 2 MG TABLET PO SCH (10:39)
[2020-07-18] MEDS: HEPARIN SOD (PORCINE) 5,000 UNIT/ML 1 ML VIAL SUBCUT SCH (10:40)
[2020-07-18 11:13] LABS: HEMATOCRIT 37.2 % (36.0-47.0); HEMOGLOBIN 12.5 g/dL (12.0-15.5); MEAN CORPUSCULAR HEMOGLOBIN 29.2 pg (27.0-33.4); MEAN CORPUSCULAR HGB CONC 33.5 g/dL (32.0-36.0); MEAN CORPUSCULAR VOLUME 87 fl (80-97); PLATELET COUNT 199 10^3/uL (150-450); RED BLOOD COUNT 4.27 10^6/uL (3.72-5.28); RED CELL DISTRIBUTION WIDTH 13.9 % (11.5-14.0); WHITE BLOOD COUNT 11.5 10^3/uL (4.0-10.5)
[2020-07-18 11:36] LABS: ANION GAP 8 (5-19); BLOOD UREA NITROGEN 13 mg/dL (7-20); CALCIUM 9.5 mg/dL (8.4-10.2); CARBON DIOXIDE 29 mmol/L (22-30); CHLORIDE 102 mmol/L (98-107); GLUCOSE 121 mg/dL (75-110); POTASSIUM 3.3 mmol/L (3.6-5.0)
--- NOTE | 2020-07-18 15:21 | PDOC TRANSFER SUMMARY ---
General Admission Date/PCP: 07/14/20 05:00 WAI ARGUETA NP Admission Date: 07/14/20 Transfer Date: 07/18/20 Accepting Facility: Other (Comments) - [facility] Resuscitation Status: Full Code - Transfer Diagnosis (1) Toxic encephalopathy Is this a current diagnosis for this admission?: Yes (2) NALDO (acute kidney injury) Is this a current diagnosis for this admission?: Yes (3) Bipolar disorder Is this a current diagnosis for this admission?: Yes (4) [employer] toxicity Is this a current diagnosis for this admission?: Yes (5) Metabolic acidosis Is this a current diagnosis for this admission?: Yes (6) Schizoaffective disorder, bipolar type Is this a current diagnosis for this admission?: Yes - Transfer Medications Home Medications: Amlodipine Besylate [Norvasc 2.5 mg Tablet] 2.5 mg PO DAILY 07/14/20 Benztropine Mesylate [Cogentin 1 mg Tablet] 1 tab PO BID 07/14/20 Haloperidol [Haldol 2 mg Tablet] 2 mg PO BID 07/14/20 Perphenazine 2mg 2 mg PO DAILY 07/14/20 Transfer Medications: Current Medications Benztropine Mesylate (Cogentin 1 Mg Tablet) 1 mg PO BID AILYN Stop: 08/13/20 17:59 Last Admin: 07/18/20 10:39 Dose: 1 mg Documented by: Haloperidol (Haldol 2 Mg Tablet) 2 mg PO BID AILYN Stop: 08/13/20 17:59 Last Admin: 07/18/20 10:39 Dose: 2 mg Documented by: Heparin Sodium (Porcine) (Heparin Inj 5,000 Units/Ml 1 Ml Vial) 5,000 unit SUBCUT Q12 AILYN Stop: 08/13/20 09:59 Last Admin: 07/18/20 10:40 Dose: 5,000 unit Documented by: Ondansetron HCl (Zofran Inj/Pf 4 Mg/2 Ml Sdv) 4 mg IV Q8HP PRN PRN Reason: FOR NAUSEA/VOMITING Stop: 08/13/20 04:46 Last Admin: 07/16/20 23:00 Dose: 4 mg Documented by: Patient Own Medication (Perphenazine 2mg) 2 mg PO DAILY AILYN Stop: 08/14/20 09:59 Potassium Chloride (Klor-Con 10 Meq Tablet Er) 40 meq PO NOW ONE Stop: 07/18/20 15:15 - Allergies Allergies/Adverse Reactions: No Known Allergies Allergy (Verified 08/12/18 19:03) - Diet/Activity Discharge Diet: Cardiac Hospital Course Hospital Course: Per H&P: Estella Sumner is a 59 y/o female with psychotic disorder who is on multiple antipsychotics including lithium presents from [facility] for altered mental status. Due to alteration in her mental status she is unable to give history and employee who accompanied her does not know much about her baseline. A brief history was obtained from ER attending and chart review. Per ER attending, She has not been eating or drinking for the past few days, has decreased communica tion, was reportedly diaphoretic and shaking today. She takes lithium and her lithium level was found to be elevated at 2.9 while at the ER and she was started on aggressive IV hydration. During my initial evaluation patient was given Ativan IV prior to undergoing CT head and unsure of whether she was under the influence of benzo or altered due to intoxication, decided to reevaluate after the effect of benzo we are sent out. She was reevaluated again 2 hours after she was given lorazepam but she was still was very lethargic, falling asleep immediately after awaking her with tactile stimuli. I recommended potential ICU admission for closer monitoring. In the meantime she was continued on IV hydration and she was evaluated by ICU team. While at the ER, her mental status started to improve and she was more awake but still nonverbal. I reevaluated her again for the third time and she looked awake and much improved from the previous 2 evaluations and decided to attempt her to IMCU for continuous monitoring and IV hydration. Her lithium was held and she was treated supportively. Her lithium levels came down and as they did her mental status improved. She became more interactive and was eating and drinking normally. She was seen in consultation by psychiatry who recommended continuing to monitor her and resuming her other medications continue withholding lithium. Her potassium tended to be a little bit low but the rest of her electrolytes were normal. We will monitor her to see if she was going to develop nephrogenic diabetes insipidus but fortunately she did not. She is medically stable for transfer back to her psychiatric facility. Anticipate transfer this evening. Her labs and examination were reassuring. Physical Exam Vital Signs: Temp Pulse Resp BP Pulse Ox 98.3 F 87 18 119/83 97 07/18/20 11:39 07/18/20 11:39 07/18/20 11:39 07/18/20 11:39 07/18/20 11:39 Intake & Output 07/17/20 07/18/20 07/19/20 06:59 06:59 06:59 Intake Total 330 480 520 Output Total 1750 625 400 Balance -1420 -145 120 Weight 76.1 kg 75.3 kg General appearance: PRESENT: no acute distress, cooperative Head exam: PRESENT: normocephalic Eye exam: PRESENT: PERRLA Respiratory exam: PRESENT: clear to auscultation manolo, symmetrical, unlabored. ABSENT: accessory muscle use, retraction, tachypnea, wheezes Cardiovascular exam: PRESENT: RRR, +S1, +S2. ABSENT: tachycardia GI/Abdominal exam: PRESENT: soft. ABSENT: rebound, rigid, tenderness Musculoskeletal exam: PRESENT: Displays full independent use of all 4 extremities Neurological exam: PRESENT: alert, awake, oriented to person, oriented to place, oriented to situation Psychiatric exam: PRESENT: flat affect, unusual affect Focused psych exam: ABSENT: restlessness Results Laboratory Results: 07/18/20 11:04 07/18/20 11:04 07/17/20 07/17/20 07/18/20 17:15 17:15 11:04 WBC 11.8 H 11.5 H RBC 4.30 4.27 Hgb 12.5 12.5 Hct 37.4 37.2 MCV 87 87 MCH 29.1 29.2 MCHC 33.4 33.5 RDW 13.9 13.9 Plt Count 197 199 Sodium 136.6 L Potassium 3.2 L Chloride 100 Carbon Dioxide 24 Anion Gap 13 BUN 14 Creatinine 0.78 Est GFR ( Amer) > 60 Glucose 209 H Calcium 9.4 07/18/20 11:04 WBC RBC Hgb Hct MCV MCH MCHC RDW Plt Count Sodium 139.1 Potassium 3.3 L Chloride 102 Carbon Dioxide 29 Anion Gap 8 BUN 13 Creatinine 0.61 Est GFR ( Amer) > 60 Glucose 121 H Calcium 9.5 07/13/20 07/14/20 07/14/20 16:24 05:33 06:31 Creatine Kinase Cancelled 70 Troponin I < 0.012 Impressions: Chest X-Ray 07/13/20 15:43 IMPRESSION: Subsegmental atelectasis at the bilateral lung bases. No consolidation or pleural effusion. Head CT 07/13/20 15:43 IMPRESSION: No acute intracranial process is identified. The cause of the patient's mental status change is not identified on this examination. Plan Time Spent: Greater than 30 Minutes
[2020-07-18 15:46] VITALS: BP 114/74
== END 2020-07-18 16:23 | disposition other institution (70) | DRG 917 ==
LOC: ER 15:21 → EH 07-14 05:00 → 3S 07-14 09:23
PROVIDERS: ADMIT Student in an Organized Health Care Education/Training Program; ATTEND Family Medicine
DX: T43.592A Poisoning by other antipsychotics and neuroleptics, intentional self-harm, initial encounter (principal); G92 Toxic encephalopathy; N17.9 Acute kidney failure, unspecified; E87.2 Acidosis; F25.0 Schizoaffective disorder, bipolar type; Y92.239 Unspecified place in hospital as the place of occurrence of the external cause; E87.6 Hypokalemia; D72.829 Elevated white blood cell count, unspecified; Z20.828 Contact with and (suspected) exposure to other viral communicable diseases; Z79.899 Other long term (current) drug therapy; Z90.710 Acquired absence of both cervix and uterus
CPT/HCPCS: 36415; 70450; 71045; 80048; 80053; 80178; 81001; 82550; 82570; 82803; 83605; 83735; 83930; 83935; 84100; 84300; 84439; 84443; 84484; 85025; 85027; 87040; 87077; 87086; 87150; 87186; 87635; 93005; 93010; 96361; 96365; 96375; 99285; C9803; J1644; J2060; J2405; J3475; J3480; J3490; J7030